=== PATIENT | male | born 1975 | race Caucasian/White ===

== ENCOUNTER → 2016-06-26 | Outpatient (CLI) | payer BC ==
[2016-02-16 11:47] VITALS: BP 108/62
--- NOTE | 2016-06-27 07:30 | RAD ---
HISTORY: Right hand pain, nontraumatic Study: Right hand three view Comparison: None Findings: The patient is status post arthrodesis of multiple carpal bones with a a round plate and multiple sc rews. 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 Radiocarpal degenerative joint disease is present with a subchondral cyst at the radius. The remainder of the bones and joints of the hand are intact and normally aligned. No erosive arthritis or soft tissue abnormality is identified. IMPRESSION: Postsurgical changes as above Degenerative joint disease radiocarpal joints Reported By:
--- NOTE | 2016-06-27 07:30 | RAD ---
HISTORY: Right wrist pain, nontraumatic Study: Right wrist three view Comparison: None Findings: The patient appears to be status post arthrodesis of multiple carpal bones with a round plate and mu ltiple screws. 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 Radiocarpal degenerative join t disease is present with a radial subchondral cyst present. The carpometacarpal joints are normal. IMPRESSION: Postsurgical changes as described Radiocarpal degenerative joint disease with subchondral cyst Reported By:
== END | disposition home or self-care (01) ==
LOC: RAD 19:14
PROVIDERS: ATTEND Internal Medicine
DX: M79.641 Pain in right hand (principal); M19.041 Primary osteoarthritis, right hand; M19.031 Primary osteoarthritis, right wrist; M25.831 Other specified joint disorders, right wrist
CPT/HCPCS: 73100; 73130

== ENCOUNTER 2016-09-22 20:12 | Emergency (ER) | payer BC ==
[2016-09-22 20:23] VITALS: BP 154/93; BMI 28.7
[2016-09-22 21:09] LABS: BILIRUBIN,URINE NEGATIVE (NEGATIVE); BLOOD/HEMOGLOBIN,URINE NEGATIVE (NEGATIVE); GLUCOSE, URINE NEGATIVE (NEGATIVE); KETONES,URINE NEGATIVE (NEGATIVE); LEUKOCYTE ESTERASE ,URINE NEGATIVE (NEGATIVE); NITRITES,URINE NEGATIVE (NEGATIVE); PH,URINE 6.5 (5.0 - 8.0); PROTEIN,URINE NEGATIVE (NEGATIVE); UROBILINOGEN,URINE NORMAL (NORMAL)
--- NOTE | 2016-09-22 21:12 | DR.GENAD ---
HPI - PCP Primary Care Physician: DR. GUTHRIE - Complaint/Symptoms Chief Complaint Doctors Comments: Patient is complaining of left CVA and side pain for the past seven days getting worst today. States he went to see Dr. Guthrie with the pain and they did an x-ray and set him up for a MRI with contrast next Sunday but the pain has gotten worst and he cannot wait until next week to find out what is going on. states the pain is worst when he cough or sneeze. states he had pneumonia Feb 2016 and he took all of his antibiotics. He denies SOB or wheezing or any recent trauma. He denies tobacco or alcohol usage. States his bowels has been regular and he has not seen any sami or hematuria. States chest pain worst when he cough. Chief Complaint:: LEFT SIDE PAIN UNDER RIB CAGE INTO LOWER BACK. STARTED HURTING A WEEK AGO. Self Treatment fo Chief Complaint: SEEN DR. GUTHRIE X-RAY DONE ON SUNDAY AT DR. GUTHRIE'S OFFICE PT TO FOLLOW UP WITH MRI - Nurses notes reviewed Nurses Notes Review: Yes - Source History Provided: Patient - Mode of Arrival Mode of Arrival: Ambulatory - Timing Onset of Chief Complaint: 09/15/16 Came on: Gradually - Duration Duration: Constant How lon Duration: Days - Location Location: left CVA pain - Severity Severity: Moderate, Severe - Modifying Factors Worsens:: movement, coughing Improves:: nothing PMH - PMH Past Medical History: Yes Past Medical History: Arthritis, Gout, Hypertension Past Surgical History: Yes Surgical History: Ortho Surgery, Tonsillectomy - Family History History of Family Medical Conditions: (UNKNOWN) Family Medical History: Coronary Artery Disease, Hypertension - Social History Does patient currently use any type of tobacco product: Yes Have you used tobacco products in the last 12 months: Yes Type of Tobacco Use: Smokeless How many years tobacco product used: 22 Does any household member use tobacco: No Alcohol Use: None Do you use any recreational Drugs:: No Lives With: Spouse Lives Where: Home - infectious screening In the last 2 months have you had wt loss of >10#?: NO Have you had fever, night sweats or hemotysis?: No Have you traveled outside the country in the last 6 months?: No Isolation: Standard ROS - Review of Systems Constitutional: No Symptoms Reported. negative: See HPI, Chills, Diaphoresis, Fever, Malaise, Weakness, Irritable, Fatigue, Loss of Appetite, Other Eyes: No Symptoms Reported ENTM: No Symptoms Reported. negative: See HPI, Ear Pain, Ear Discharge, Pulling on Ears, Hearing Loss, Nose Pain, Nose Discharge, Epistaxis, Nose Congestion, Mouth Pain, Mouth Swelling, Loose Teeth, Drooling, Throat Pain, Throat Swelling, Ear Foreign Body Respiratoy: Non-Productive Cough. negative: No Symptoms Reported, See HPI, Productive Cough, Moist Cough, Dry Cough, Hacking Cough, Barking Cough, Brassy Cough, Orthopnea, Short of Breath, Stridor, Wheezing, Hemoptysis, Other Cardiovascular: No Symptoms Reported, Chest Pain. negative: See HPI, Edema, Palpitations, Syncope, Cyanosis, Skin Mottling, Other Gastrointestinal/Abdominal: No Symptoms Reported, Abdominal Pain. negative: See HPI, Constipation, Diarrhea, Nausea, Vomiting, Food Intolerance, Other Genitourinary: No Symptoms Reported. negative: See HPI, Discharge, Dysuria, Frequency, Hematuria, Pain, Bleeding, Other Neurological: No Symptoms Reported Musculoskeletal: No Symptoms Reported, Left, Chest wall Integumentary: No Symptoms Reported. negative: See HPI, Change in Color, Change in Hair/Nails, Dryness, Lesions, Lumps, Rash, Itching, Wound, Bruises, Juandice, Other Hematologic/Lymphatic: No Symptoms Reported. negative: See HPI, Anemia, Blood Clots, Easy Bleeding, Easy Bruising, Swollen Glands, Lymphadenopathy, Other Endocrine: No Symptoms Reported. negative: See HPI, Excessive Sweating, Flushing, Intolerance to Cold, Intolerance to Heat, Increased Hunger, Increased Thirst, Increased Urine, Unexplained Weight Gain, Unexplained Weight Loss, Failure to Thrive, Decreased Appetite, Other Psychiatric: No Symptoms Reported. negative: See HPI, Anxiety, Depression, Hallucinations, Excessive crying, Suicidal, Other PE - Vital Signs Vitals: Temperature 98.2 F Pulse Rate 74 Respiratory Rate 16 Blood Pressure [Right Arm] 108/62 Blood Pressure 154/93 O2 Sat by Pulse Oximetry 97 - General Limitations: No Limitations. negative: Language Barrier, Altered Mental Status , Physical Limitation, Other General Appearance: Alert, In Distress (moderate) - Head Head Exam: Normal Inspection, Atraumatic, Normocephalic - Eyes Eye exam: Normal Appearance, PERRL, EOMI. negative: Scleral Icterus, Conjunctival Injection, Nystagmus, Miosis, Mydrasis, Periorbital Swelling, Periorbital Tenderness, Other - ENT ENT Exam: Normal Exam, Normal Oropharynx, Normal External Ear Exam, Mucous Membranes Moist, TM's Normal Bilaterally External Ear Exam: Normal External Inspection TM/Canal Exam: Bilateral Normal Nose Exam: Normal Nose Exam Mouth Exam: Normal Inspection Throat Exam: Normal Inspection. negative: Tonsillar Erythema, Tonsillomegaly, Tonsillar Exudate, R Peritonsillar Mass, L Peritonsillar Mass, Muffled Voice, Other - Neck Neck Exam: Normal Inspection, Full ROM, Trachea Midline. negative: Tenderness, Meningismus, Lymphadenopathy, Thyromegaly, Other - Chest Chest Inspection: Normal Inspection, Symmetric Chest Wall Rise - Respiratory Respiratory Exam: Normal Lung Sounds Bilat Respiratory Exam: Bilateral Clear to Auscultation - Cardiovascular Cardiovascular Exam: Regular Rate, Normal Rhythm, Normal Heart Sounds. negative : Bradycardia, Tachycardia, Irregular Rhythm, Systolic Murmur, Diastolic Murmur , Rubs, Gallop, Clicks, JVD, +S1, +S2, +S3, +S4, Other - Abdominal Exam Abdominal Exam: Normal Inspection, Normal Bowel Sounds, Soft, Tenderness (LUQ tenderness with guarding), Guarding, Dimnished Bowel Sounds Abdominal Tenderness: LUQ, Moderate - Extremities Extremities Exam: Normal Inspection, Full ROM, Normal Capillary Refill. negative: Tenderness, Edema, Joint Swelling, Calf Tenderness, Other - Back Back Exam: Normal Inspection, Full ROM. negative: Tenderness, (R) CVA Tenderness, (L) CVA Tenderness, Muscle Spasm, Paraspinal Tenderness, Vertebral Tenderness, Rashes, (R) Sciatic Notch Tenderness, (L) Sciatic Notch Tendern, (R ) Straight Leg Raise, (L) Straight Leg Raise, Other - Neurologic Neurological Exam: Alert, Oriented X3, CN II-XII Intact, Normal Gait, Reflexes Normal - Psychiatric Psychiatric Exam: Normal Affect, Normal Mood. negative: Depressed, Agitated, Anxious, Flat Affect, Manic, Homicidal Ideation, Suicidal Ideation, Other - Skin Skin Exam: Warm, Dry, Intact, Normal Color. negative: Rash, Cyanosis, Diaphoresis, Erythema, Pallor, Mottled, Other ROR - Labs Reviewed Laboratory Results Reviewed?: Yes (all labs and x-ray results reviewed and discussed with patient) Result Diagrams: 09/22/16 21:23 09/22/16 21:23 Laboratory: WBC 7.4 X10^3/uL (3.6-10.0) 09/22/16 21: RBC 5.22 X10^6/uL (4.7-6.0) 09/22/16 21: Hgb 15.8 g/dL (13.5-18.0) 09/22/16 21: Hct 45.7 % (42.0-54.0) 09/22/16 21: MCV 87.6 fL (80.0-100.0) 09/22/16 21: MCH 30.3 pg (27.0-34.0) 09/22/16 21: MCHC 34.6 g/dL (33.0-35.0) 09/22/16 21: RDW 13.9 % (11.6-16.5) 09/22/16 21: Plt Count 167 X10^3/uL (150.0-450.0) 09/22/16 21: MPV 8.2 fL (7.4-11.0) 09/22/16 21: Neut % 58.5 % (42.0-75.0) 09/22/16 21: Lymph % 32.0 % (21.0-51.0) 09/22/16 21: [place] % 5.8 % (0.0-13.0) 09/22/16 21: Eos % 2.6 % (0.9-2.9) 09/22/16 21: Baso % 1.1 % (0.2-1.0) H 09/22/16 21: Neut # 4.3 x10^3/uL (2.2-4.8) 09/22/16 21: Lymph # 2.4 X10^3/uL (1.3-2.9) 09/22/16 21: [place] # 0.4 x10^3/uL (0.3-0.8) 09/22/16 21: Eos # 0.2 x10^3/uL (0.0-0.2) 09/22/16 21: Baso # 0.1 X10^3/uL (0.0-0.1) 09/22/16 21:23 Absolute Nucleated RBC 0.0 /100WBC 09/22/16 21:23 D-Dimer < 100 ng/mL (0-400) 09/22/16 21:26 Sodium 143 mmol/L (136-145) 09/22/16 21:23 Corrected Sodium TNP 09/22/16 21:23 Potassium 3.8 mmol/L (3.5-5.1) 09/22/16 21:23 Chloride 106 mmol/L (98-107) 09/22/16 21:23 Carbon Dioxide 29.8 mmol/L (21-32) 09/22/16 21:23 BUN 10 mg/dL (7-18) 09/22/16 21:23 Creatinine 1.28 mg/dL (0.70-1.30) 09/22/16 21:23 Est GFR (MDRD) Af Amer > 60 (>60) 09/22/16 21:23 Est GFR (MDRD) Non-Af > 60 (>60) 09/22/16 21:23 Glucose 96 mg/dL (65-99) 09/22/16 21:23 Calcium 8.9 mg/dL (8.5-10.1) 09/22/16 21:23 Corrected Calcium TNP 09/22/16 21:23 Total Bilirubin 0.60 mg/dL (0.2-1.0) 09/22/16 21:23 AST 20 Units/L (15-37) 09/22/16 21:23 ALT 29 Units/L (12-78) 09/22/16 21:23 Alkaline Phosphatase 63 Units/L (46-116) 09/22/16 21:23 Total Protein 7.6 g/dL (6.4-8.2) 09/22/16 21:23 Albumin 4.1 g/dL (3.4-5.0) 09/22/16 21:23 Globulin 3.5 g/dL (2.5-4.5) 09/22/16 21:23 Albumin/Globulin Ratio 1.2 Ratio (1.1-2.1) 09/22/16 21:23 Amylase 62 Units/L (25-115) 09/22/16 21:23 Lipase 145 Units/L (73-393) 09/22/16 21:23 Specimen Type Clean catch urine 09/22/16 20:51 Urine Color Yellow (YELLOW) 09/22/16 20:51 Urine Appearance Clear (CLEAR) 09/22/16 20:51 Urine pH 6.5 (5.0 - 8.0) 09/22/16 20:51 Ur Specific [place] 1.010 (1.000-1.030) 09/22/16 20:51 Urine Protein Negative (NEGATIVE) 09/22/16 20:51 Urine Glucose (UA) Negative (NEGATIVE) 09/22/16 20:51 Urine Ketones Negative (NEGATIVE) 09/22/16 20:51 Urine Occult Blood Negative (NEGATIVE) 09/22/16 20:51 Urine Nitrite Negative (NEGATIVE) 09/22/16 20:51 Urine Bilirubin Negative (NEGATIVE) 09/22/16 20:51 Urine Urobilinogen Normal (NORMAL) 09/22/16 20:51 Ur Leukocyte Esterase Negative (NEGATIVE) 09/22/16 20:51 Urine RBC 0-3 /HPF (NEGATIVE) 09/22/16 20:51 Urine WBC 0-3 /HPF (NEGATIVE) 09/22/16 20:51 Ur Squamous Epith Cells Rare /HPF (NEGATIVE) 09/22/16 20:51 Urine Bacteria Negative /HPF (NEGATIVE) 09/22/16 20:51 Ur Culture Indicated? No/not indicated 09/22/16 20:51 Urine Opiates Screen Negative (NEG=<300) 09/22/16 20:51 Urine Methadone Screen Negative (NEG=<300) 09/22/16 20:51 Ur Barbiturates Screen Negative (NEG=<200) 09/22/16 20:51 Ur Phencyclidine Scrn Negative (NEG=<25) 09/22/16 20:51 Ur Amphetamines Screen Negative (NEG=<1000) 09/22/16 20:51 U Benzodiazepines Scrn Negative (NEG=<200) 09/22/16 20:51 Urine Cocaine Screen Negative (NEG=<300) 09/22/16 20:51 U Marijuana (THC) Screen Negative (NEG=<50) 09/22/16 20:51 H. pylori IgG Antibody Negative (NEGATIVE) 09/22/16 21:23 - XRAY XRAY Interpreted by: Radiologist (CT abdomen:Multiple bilateral nonobstructing renal pelvic stones. No other acute intra-abdominal or intrapelvic process.) XRAY Findings: CXR: No acute cardiopulmonary abnormality - Diagnosis Discharge Problem: Bilateral kidney stones, Left-sided chest wall pain, Costochondritis, acute - Discharge Plan Disposition: HOME, SELF-CARE Condition: Stable Prescriptions: Acetaminophen/Codeine Tab [TYLENOL w/CODEINE #3 (300 MG/30 MG) *] 1 tab PO Q4- 6H PRN #24 tab PRN Reason: Pain Naproxen [NAPROSYN 500 MG *] 500 mg PO BID PRN #30 tab PRN Reason: Pain/Inflammation - Follow ups/Referrals Follow ups/Referrals: Josue Guthrie [Primary Care Provider] - 3 days - Instructions Instructions: Kidney Stones, [id number], Musculoskeletal Pain
[2016-09-22] MEDS ORDERED: TORADOL 30 MG VIAL IVP STA (21:16)
[2016-09-22] MEDS ORDERED: NS 1000 ML 1,000 ML IV ONE (21:17)
[2016-09-22] MEDS ORDERED: NS 1000 ML 1,000 ML ONE (21:27)
[2016-09-22] MEDS ORDERED: TORADOL 30 MG VIAL ONE (21:27)
[2016-09-22 21:29] LABS: BASOPHILS # (AUTO) 0.1 X10^3/uL (0.0-0.1); BASOPHILS % (AUTO) 1.1 % (0.2-1.0); EOSINOPHILS # (AUTO) 0.2 x10^3/uL (0.0-0.2); EOSINOPHILS % (AUTO) 2.6 % (0.9-2.9); HEMATOCRIT 45.7 % (42.0-54.0); HEMOGLOBIN 15.8 g/dL (13.5-18.0); LYMPHOCYTES # (AUTO) 2.4 X10^3/uL (1.3-2.9); MEAN CORPUSCULAR HEMOGLOBIN 30.3 pg (27.0-34.0); MEAN CORPUSCULAR HGB CONC 34.6 g/dL (33.0-35.0); MEAN CORPUSCULAR VOLUME 87.6 fL (80.0-100.0); MEAN PLATELET VOLUME 8.2 fL (7.4-11.0); MONOCYTES # (AUTO) 0.4 x10^3/uL (0.3-0.8); MONOCYTES % (AUTO) 5.8 % (0.0-13.0); NEUTROPHILS # (AUTO) 4.3 x10^3/uL (2.2-4.8); NEUTROPHILS % (AUTO) 58.5 % (42.0-75.0); PLATELET COUNT 167 X10^3/uL (150.0-450.0); RED BLOOD COUNT 5.22 X10^6/uL (4.7-6.0); RED CELL DISTRIBUTION WIDTH 13.9 % (11.6-16.5); WHITE BLOOD COUNT 7.4 X10^3/uL (3.6-10.0)
[2016-09-22 21:30] LABS: APPEARANCE,URINE CLEAR (CLEAR); BACTERIA,URINE NEGATIVE /HPF (NEGATIVE); COLOR,URINE YELLOW (YELLOW); RBC,URINE 0-3 /HPF (NEGATIVE); SQUAMOUS EPITHELIAL CELL,UR RARE /HPF (NEGATIVE)
[2016-09-22 21:41] LABS: ALANINE AMINOTRANSFERASE 29 Units/L (12-78); ALBUMIN 4.1 g/dL (3.4-5.0); ALKALINE PHOSPHATASE 63 Units/L (46-116); AMYLASE 62 Units/L (25-115); ASPARTATE AMINO TRANSFERASE 20 Units/L (15-37); BLOOD UREA NITROGEN 10 mg/dL (7-18); CALCIUM 8.9 mg/dL (8.5-10.1); CARBON DIOXIDE 29.8 mmol/L (21-32); CHLORIDE 106 mmol/L (98-107); CREATININE 1.28 mg/dL (0.70-1.30); GLUCOSE 96 mg/dL (65-99); LIPASE 145 Units/L (73-393); SODIUM 143 mmol/L (136-145); TOTAL PROTEIN 7.6 g/dL (6.4-8.2); eGFR BLACK RACES > 60 (>60); eGFR NON BLACK RACES > 60 (>60)
--- NOTE | 2016-09-22 21:57 | CT ---
CT ABDOMEN AND PELVIS WITHOUT CONTRAST CLINICAL HISTORY: 40-year-old male with left flank pain. COMPARISON: None. TECHNIQUE: Multiple contiguous computed tomographic axial images of the abdomen and pelvis were obta ined without the use of oral or intravenous contrast. Images were reformatted in the coronal and sag ittal planes. FINDINGS: Study is limited secondary to patient motion. The lung bases demonstrate no evidence of focal air-space opacification, pleural effusion, pneumotho rax, or suspicious pulmonary nodules. The imaged inferior mediastinum and heart are normal in appea kellee without evidence of pericardial effusion. The liver, gallbladder, pancreas, and spleen are within normal limits for noncontrast imaging. The generalize unremarkable for study without contrast. Bilateral nonobstructing renal pelvic stones measuring up to 4 mm. No perinephric or periureteric fluid. There is no evidence of hydroureteronep hrosis and the ureters run in an unobstructed course to a moderately distended urinary bladder. The prostate, seminal vesicles, and external genitalia are within normal limits. The appendix is normal in appearance. The bowel is without obstruction or inflammation and there is no free fluid or free air within the peritoneal cavity. There are no pathologically enlarged lymph nodes in the abdomen or pelvis. The arteriovascular structures are within normal limits for a study without contrast. Soft tissues are normal. The osseous structures are intact without fracture or malalignment. IMPRESSION: 1. Multiple bilateral nonobstructing renal pelvic stones measuring up to 4 mm. 2. No other acute intra-abdominal or intrapelvic process. Reported By:
[2016-09-22] MEDS ORDERED: ROCEPHIN VIAL 1 GM 1 GM in NS 50 ML IV + SPIKE MINIBAG* 50 ML IV ONE (22:49)
[2016-09-22] MEDS ORDERED: NORFLEX INJ IVP ONE (22:51)
--- NOTE | 2016-09-22 23:24 | RAD ---
Chest, two views Indication: Right-sided chest pain. Comparison: 02/16/2016 Findings: The cardiac silhouette is unremarkable. The lungs are essentially clear without focal infi ltrates, pleural effusion, or pneumothorax. The bony thorax is unremarkable. Impression: No acute cardiopulmonary abnormality. Reported By:
[2016-09-22] MEDS ORDERED: ROCEPHIN 1 GM IV ONE (23:30)
[2016-09-22] MEDS ORDERED: [UNRECOGNIZED DRUG - OTHER] IV ONE (23:30)
[2016-09-22] MEDS ORDERED: NORFLEX INJ ONE (23:30)
[2016-09-22] MEDS ORDERED: ROCEPHIN VIAL 1 GM ONE (23:31)
[2016-09-22] MEDS ORDERED: NS 50 ML IV 50 ML IV ONE (23:31)
== END 2016-09-23 00:50 | disposition home or self-care (01) ==
LOC: ER 20:27
DX: N20.0 Calculus of kidney (principal); R07.89 Other chest pain; M94.0 Chondrocostal junction syndrome [Tietze]
CPT/HCPCS: 36415; 71020; 74176; 80053; 80307; 81001; 82150; 83690; 85025; 85378; 86677; 96365; 96374; 96375; 99283; A4216; A4222; G0434; J0696; J1885; J2360

== ENCOUNTER 2017-01-06 11:22 | Emergency (ER) | payer BC ==
[2017-01-06 11:23] VITALS: BP 154/93
[2017-01-06 11:27] VITALS: BMI 29.9
[2017-01-06] MEDS ORDERED: TORADOL 30 MG VIAL IVP ONE (11:52)
--- NOTE | 2017-01-06 11:53 | DR.GENAD ---
HPI - PCP Primary Care Physician: Benji - Complaint/Symptoms Chief Complaint Doctors Comments: Patient with a history nephrolithiasis, had lithotrypsy a few months ago. Pain is similar to previous kidney stones. Chief Complaint:: "Yesterday I started hurting on my right side. I have had kidney stones in the past and it feels just like it." - Source History Provided: Patient - Mode of Arrival Mode of Arrival: Ambulatory - Timing Onset of Chief Complaint: 01/05/17 PMH - PMH Past Medical History: Yes Past Medical History: Arthritis, Gout, Hypertension Past Surgical History: Yes Surgical History: Ortho Surgery, Tonsillectomy Past Surgical History Comment: x2 wrist - Family History History of Family Medical Conditions: Yes Family Medical History: Coronary Artery Disease, Hypertension - Social History Does patient currently use any type of tobacco product: Yes Have you used tobacco products in the last 12 months: Yes Type of Tobacco Use: Smokeless Does any household member use tobacco: No Alcohol Use: None Do you use any recreational Drugs:: No Lives With: Family Lives Where: Home - infectious screening In the last 2 months have you had wt loss of >10#?: NO Have you had fever, night sweats or hemotysis?: No Have you traveled outside the country in the last 6 months?: No Isolation: Standard ROS - Review of Systems Eyes: No Symptoms Reported ENTM: No Symptoms Reported Respiratoy: No Symptoms Reported Cardiovascular: No Symptoms Reported Gastrointestinal/Abdominal: No Symptoms Reported Genitourinary: No Symptoms Reported Neurological: No Symptoms Reported Musculoskeletal: Other (right flank pain) Integumentary: No Symptoms Reported Hematologic/Lymphatic: No Symptoms Reported Endocrine: No Symptoms Reported Psychiatric: No Symptoms Reported All Other Systems: Reviewed and Negative PE - Vital Signs Vitals: Temperature 98.4 F Pulse Rate 80 Respiratory Rate 17 Blood Pressure [Right Arm] 108/62 Blood Pressure 154/93 O2 Sat by Pulse Oximetry 97 - General General Appearance: Alert, In No Apparent Distress - Head Head Exam: Normal Inspection, Atraumatic - Eyes Eye exam: Normal Appearance, PERRL, EOMI - ENT ENT Exam: Normal Exam External Ear Exam: Normal External Inspection TM/Canal Exam: Bilateral Normal Nose Exam: Normal Nose Exam Mouth Exam: Normal Inspection Throat Exam: Normal Inspection, Tonsillar Erythema - Neck Neck Exam: Normal Inspection, Full ROM - Chest Chest Inspection: Normal Inspection - Respiratory Respiratory Exam: Normal Lung Sounds Bilat Respiratory Exam: Bilateral Clear to Auscultation - Cardiovascular Cardiovascular Exam: Regular Rate - Abdominal Exam Abdominal Exam: Normal Inspection, Normal Bowel Sounds Abdominal Tenderness: negative: RUQ, RLQ, LUQ, LLQ, Epigastrium, Suprapubic, Diffuse, Mild, Moderate, Severe, Other - Extremities Extremities Exam: Normal Inspection, Full ROM - Back Back Exam: Normal Inspection, (R) CVA Tenderness - Neurologic Neurological Exam: Alert, Oriented X3, CN II-XII Intact - Psychiatric Psychiatric Exam: Normal Affect - Skin Skin Exam: Warm, Dry, Intact Course - Reevaluation 1st: Unchanged ROR - Labs Reviewed Laboratory: Specimen Type Clean catch urine 01/06/17 12:18 Urine Color Yellow (YELLOW) 01/06/17 12:18 Urine Appearance Clear (CLEAR) 01/06/17 12:18 Urine pH 5.0 (5.0 - 8.0) 01/06/17 12:18 Ur Specific [place] 1.015 (1.000-1.030) 01/06/17 12:18 Urine Protein Negative (NEGATIVE) 01/06/17 12:18 Urine Glucose (UA) Negative (NEGATIVE) 01/06/17 12:18 Urine Ketones Negative (NEGATIVE) 01/06/17 12:18 Urine Occult Blood 1+ (NEGATIVE) 01/06/17 12:18 Urine Nitrite Negative (NEGATIVE) 01/06/17 12:18 Urine Bilirubin Negative (NEGATIVE) 01/06/17 12:18 Urine Urobilinogen Normal (NORMAL) 01/06/17 12:18 Ur Leukocyte Esterase Negative (NEGATIVE) 01/06/17 12:18 Urine RBC 0-2 /HPF (NEGATIVE) 01/06/17 12:18 Urine WBC None seen /HPF (NEGATIVE) 01/06/17 12:18 Ur Squamous Epith Cells Negative /HPF (NEGATIVE) 01/06/17 12:18 Amorphous Sediment Trace /HPF (NEGATIVE) 01/06/17 12:18 Urine Bacteria Trace /HPF (NEGATIVE) 01/06/17 12:18 Ur Culture Indicated? No/not indicated 01/06/17 12:18 - XRAY XRAY Interpreted by: Radiologist (CT ABD/Pelv w/o: There are several tiny nonobstructing bilateral renal calculi measuring less than 3mm each. There are on ureteral calculi or evidence of obstructive uropathy. A recently passed stone is not excluded..l.There is an uncomplicated wide neck fat containing umbilical hernia which measures up to 2.3cm in transverse diameter with a neck measuring 18mm in transverse diameter.) - Diagnosis Discharge Problem: Nephrolithiasis - Discharge Plan Condition: Stable - Follow ups/Referrals Follow ups/Referrals: Josue Leblanc [Primary Care Provider] - 3 days - Instructions
[2017-01-06] MEDS ORDERED: TORADOL 30 MG VIAL ONE (11:54)
[2017-01-06] MEDS ORDERED: NS 1000 ML 1,000 ML ONE (11:54)
[2017-01-06] MEDS ORDERED: NS 1000 ML 1,000 ML IV SCH (12:00)
[2017-01-06 12:26] LABS: BILIRUBIN,URINE NEGATIVE (NEGATIVE); BLOOD/HEMOGLOBIN,URINE 1+ (NEGATIVE); GLUCOSE, URINE NEGATIVE (NEGATIVE); KETONES,URINE NEGATIVE (NEGATIVE); LEUKOCYTE ESTERASE ,URINE NEGATIVE (NEGATIVE); NITRITES,URINE NEGATIVE (NEGATIVE); PROTEIN,URINE NEGATIVE (NEGATIVE); UROBILINOGEN,URINE NORMAL (NORMAL)
[2017-01-06 12:33] LABS: APPEARANCE,URINE CLEAR (CLEAR); COLOR,URINE YELLOW (YELLOW)
[2017-01-06 12:34] LABS: AMORPHOUS SEDIMENT,UR TRACE /HPF (NEGATIVE); BACTERIA,URINE TRACE /HPF (NEGATIVE); RBC,URINE 0-2 /HPF (NEGATIVE); SQUAMOUS EPITHELIAL CELL,UR NEGATIVE /HPF (NEGATIVE)
--- NOTE | 2017-01-06 14:08 | CT ---
HISTORY: Right flank pain. History of kidney stones. Study: CT abdomen and pelvis without contrast. Comparison: 09/22/2016. Technique: Multiple axial images of the abdomen and pelvis were obtained from the lung bases to the p ubic symphysis without the administration of IV contrast. Findings: Included portions of the lung bases are clear. The liver, gallbladder, pancreas, spleen and adrenal glands are unremarkable noncontrast CT appearance. There are few tiny nonobstructing bilater al renal calculi which measure less than a 3 mm each. There are no stones along the course of either ureter or within the lumen of the partially distended urinary bladder. Recently passed stone is not e xcluded. The appendix is normal. The colon is grossly unremarkable without evidence of diverticulosis . There is no small bowel dilatation. There is no significant mesenteric stranding or lymphadenopathy . There is no intraperitoneal free air or free fluid. There is an uncomplicated wide neck fat contain ing umbilical hernia which measures up to 2.3 cm in transverse diameter with a neck measuring 18 mm i n transverse diameter. The abdominal aorta is nonaneurysmal. The bony structures are grossly intact. IMPRESSION: There are several tiny nonobstructing bilateral renal calculi measuring less than 3 mm each. There ar e no ureteral calculi or evidence of obstructive uropathy. A recently passed stone is not excluded. Reported By:
== END 2017-01-06 14:28 | disposition home or self-care (01) ==
LOC: ER 11:22
DX: N20.0 Calculus of kidney (principal); R10.84 Generalized abdominal pain
CPT/HCPCS: 74176; 81001; 96365; 96367; 96374; 99283; A4222; J1885

== ENCOUNTER 2019-07-27 21:23 | Inpatient (IN) ==
[2019-07-27 21:33] VITALS: BMI 31.2
--- NOTE | 2019-07-27 21:39 | DR.SOBA ---
HPI Time Seen Time Seen by Provider: 07/27/19 21:33 Primary Care Physician Primary Care Physician: CARL ARTEAGA HPI Comment HPI Comment: PATIENT IS 43YR OLD MALE IN ER WITH COUGH, SOB, FEVER AND GENERALIZED WEAKNESS TIMES 3 DAYS. SEEN IN THIS ER 2 DAYS AGO AND WAS GIVEN INHALER FOR THE BREATHING . THIS HAVE NOT HELP. STILL RUNNING FEVER. PATIENT IS DIAPHORETIC AND HAVING RESPIRATORY DISTRESS IN ER. DENIES RECENT TRAVEL OR CONTACT WITH COVID 19 POSITIVE PATIENT. HIS WAS IN CONTACT WITH PATIENT WITH COVID 19. Complaints Chief Complaint Doctors Comments: FEVER, COUGH AND GENERALIZED WEAKNESS TIMES 3 DAYS. Chief Complaint:: DRY COUGH, FEVER, WEAKNESS X 3 DAYS. PREVIOUS VISIT TO THIS ER DX WITH ASTHMA AND RECEIVED INHALER, PATIENT STATES NO RELIEF. TEMP IN TRIAGE IS 101. PATIENT HAS NO KNOWN EXPOSURE TO COVID, BUT HAS. COVID-19 Coronavirus risk:travel/contact w/high risk person: No Has patient experienced Coronavirus symptoms: No Coronavirus symptoms experienced: Fever Reviewed Nurses Notes Reviewed: Yes Source History Provided: Patient Mode of Arrival Mode of Arrival: Ambulatory Timing Onset of Chief Complaint: 07/25/19 Duration Duration: Days Context Onset:: With Light Exertion PE Risk Factors:: None History of:: None Currently on:: Inhaled Bronchodilators Prehospital Care:: Inhaled B2 Modifying Factors Worsens:: Exertion Improves:: Rest Associated Signs and Symptoms Associated Signs and Symptoms: Fever, Cough and Chest Pain If Chest Pain Quality: Pleuritic (TIGHTNESS.) Location: Substernal If Cough Cough: Nonproductive PMH PMH Past Medical History: Yes Past Medical History: Gout and Hypertension Past Surgical History: Yes Surgical History: Ortho Surgery and Tonsillectomy Past Surgical History Comment: HERNIA REPAIR Family History History of Family Medical Conditions: No Family Medical History: Coronary Artery Disease and Hypertension Social History Alcohol Use: None Do you use any recreational Drugs:: No Lives With: Family Lives Where: Home Infectious screening In the last 2 months have you had wt loss of >10#?: NO Have you had fever, night sweats or hemotysis?: No Have you traveled outside the country in the last 6 months?: No Isolation: Standard ROS Review of Systems Constitutional: Fever, Weakness and Fatigue Eyes: No Symptoms Reported; negative Blurred Vision and Diplopia ENTM: Nose Congestion; negative Ear Pain, Nose Discharge and Throat Pain Respiratoy: See HPI, Non-Productive Cough, Short of Breath and Wheezing Cardiovascular: See HPI and Palpitations; negative Chest Pain and Edema Gastrointestinal/Abdominal: No Symptoms Reported and See HPI; negative Abdominal Pain, Nausea and Vomiting Genitourinary: No Symptoms Reported and See HPI; negative Dysuria, Frequency and Hematuria Neurological: See HPI and Weakness; negative Headache Musculoskeletal: See HPI and Muscle Pain; negative Back Pain Integumentary: No Symptoms Reported and See HPI; negative Change in Color, Rash and Juandice Hematologic/Lymphatic: No Symptoms Reported and See HPI; negative Easy Bruising and Swollen Glands Endocrine: No Symptoms Reported and See HPI; negative Increased Thirst and Increased Urine Psychiatric: No Symptoms Reported and See HPI All Other Systems: Reviewed and Negative PE Vital Signs Vitals: Temperature 98.2 F Pulse Rate 84 Respiratory Rate 20 Blood Pressure [Right Arm] 131/84 Blood Pressure 130/82 O2 Sat by Pulse Oximetry 96 General Limitations: No Limitations General Appearance: Alert and In Distress Head Head Exam: Normal Inspection, Atraumatic and Normocephalic Eyes Eye exam: Normal Appearance, PERRL and EOMI; negative Scleral Icterus and Conjunctival Injection ENT ENT Exam: Normal Exam, Normal Oropharynx, Normal External Ear Exam and TM's Normal Bilaterally Neck Neck Exam: Normal Inspection and Trachea Midline; negative Tenderness and Lymphadenopathy Chest Chest Inspection: Normal Inspection and Symmetric Chest Wall Rise; negative Tenderness Respiratory Respiratory Exam: Normal Lung Sounds Bilat and Respiratory Distress; negative Accessory Muscle Use and Chest Wall Tenderness Respiratory Exam: Bilateral: Rhonchi Cardiovascular Cardiovascular Exam: Regular Rate, Normal Rhythm and Normal Heart Sounds; negative Systolic Murmur and Diastolic Murmur Abdominal Exam Abdominal Exam: Normal Inspection, Normal Bowel Sounds and Soft; negative Tenderness Extremities Extremities Exam: Normal Inspection and Normal Capillary Refill; negative Tenderness, Edema and Calf Tenderness Back Back Exam: Normal Inspection; negative (R) CVA Tenderness and (L) CVA Tenderness Neurologic Neurological Exam: Alert, Oriented X3 and CN II-XII Intact; negative Motor Sensory Deficit Psychiatric Psychiatric Exam: Normal Affect and Normal Mood Skin Skin Exam: Dry MDM Additional Information Obtained Additional Information Obtained From: Family (MOTHER PROVIDED SOME OF THE HISTORY.) Differential Diagnosis Differential Diagnosis: Bronchitis, CHF, Dysrhythmia, Hyponatremia, Pneumonia, Respiratory Insufficiency, URI and Other (UTI.) COURSE Treatment Treatment: SEE ORDERS. TYENOL 1GM IVPB. PAIN AND FEVER DECREASING. Consultation Consultation Comments: DISCUSSED PATIENT WITH DR. HERR. HE WILL ADMIT PATIENT. Education/Counseling Education/Counseling: Patient and Family Educated On: Diagnosis and Needs for Follow Up ROR Labs Reviewed Laboratory Results Reviewed?: Yes Result Diagrams: 07/29/19 04:58 07/29/19 04:58 Laboratory: WBC 5.6 X10^3/uL (3.6-10.0) 07/27/19 22:04 RBC 5.25 X10^6/uL (4.7-6.0) 07/27/19 22:04 Hgb 15.9 g/dL (13.5-18.0) 07/27/19 22:04 Hct 46.3 % (42.0-54.0) 07/27/19 22:04 MCV 88.3 fL (80.0-100.0) 07/27/19 22:04 MCH 30.2 pg (27.0-34.0) 07/27/19 22:04 MCHC 34.2 g/dL (33.0-35.0) 07/27/19 22:04 RDW 14.0 % (11.6-16.5) 07/27/19 22:04 Plt Count 121 X10^3/uL (150.0-450.0) L 07/27/19 22:04 MPV 8.6 fL (7.4-11.0) 07/27/19 22:04 Neut % (Auto) 85.7 % (42.0-75.0) H 07/27/19 22:04 Lymph % (Auto) 9.9 % (21.0-51.0) L 07/27/19 22:04 [place] % (Auto) 4.1 % (0.0-13.0) 07/27/19 22:04 Eos % (Auto) 0.1 % (0.9-2.9) L 07/27/19 22:04 Baso % (Auto) 0.2 % (0.2-1.0) 07/27/19 22:04 Neut # (Auto) 4.8 x10^3/uL (2.2-4.8) 07/27/19 22:04 Lymph # (Auto) 0.6 X10^3/uL (1.3-2.9) L 07/27/19 22:04 [place] # (Auto) 0.2 x10^3/uL (0.3-0.8) L 07/27/19 22:04 Eos # (Auto) 0.0 x10^3/uL (0.0-0.2) 07/27/19 22:04 Baso # (Auto) 0.0 X10^3/uL (0.0-0.1) 07/27/19 22:04 Absolute Nucleated RBC 0.1 /100WBC 07/27/19 22:04 Sample Site Rbra 07/27/19 23:53 ABG pH 7.520 (7.35-7.45) H 07/27/19 23:53 ABG pCO2 28.0 mmHg (35.0-45.0) L 07/27/19 23:53 ABG pO2 101.0 mmHg (80.0-100.0) H 07/27/19 23:53 ABG HCO3 22.9 mmol/L (22-26) 07/27/19 23:53 ABG O2 Saturation 98.0 % (90-100) 07/27/19 23:53 ABG Base Excess 1.0 mmol/L (-2.0-2.0) 07/27/19 23:53 [place]ug[place] Test Na 07/27/19 23:53 A-a Gradient 64.0 mmHg 07/27/19 23:53 FiO2 28.0 07/27/19 23:53 Blood Gas Comments Hu abg well-mtf 07/27/19 23:53 Sodium 135 mmol/L (136-145) L 07/27/19 22:04 Corrected Sodium TNP 07/27/19 22:04 Potassium 3.6 mmol/L (3.5-5.1) 07/27/19 22:04 Chloride 96 mmol/L (98-107) L 07/27/19 22:04 Carbon Dioxide 24.9 mmol/L (21-32) 07/27/19 22:04 BUN 13 mg/dL (7-18) 07/27/19 22:04 Creatinine 1.59 mg/dL (0.70-1.30) H 07/27/19 22:04 Est GFR (MDRD) Af Amer > 60 (>60) 07/27/19 22:04 Est GFR (MDRD) Non-Af 51 (>60) L 07/27/19 22:04 Glucose 100 mg/dL (65-99) H 07/27/19 22:04 Lactic Acid 2.5 mmol/L (0.4-2.0) H 07/27/19 22:04 Calcium 8.8 mg/dL (8.5-10.1) 07/27/19 22:04 Corrected Calcium TNP 07/27/19 22:04 Ferritin 934 ng/mL (26-388) H 07/27/19 22:04 Total Bilirubin 0.80 mg/dL (0.2-1.0) 07/27/19 22:04 AST 36 Units/L (15-37) 07/27/19 22:04 ALT 39 Units/L (12-78) 07/27/19 22:04 Alkaline Phosphatase 78 Units/L (46-116) 07/27/19 22:04 C-Reactive Protein 74.10 mg/L (0-3.0) H 07/27/19 22:04 Total Protein 8.0 g/dL (6.4-8.2) 07/27/19 22:04 Albumin 3.7 g/dL (3.4-5.0) 07/27/19 22:04 Globulin 4.3 g/dL (2.5-4.5) 07/27/19 22:04 Albumin/Globulin Ratio 0.9 Ratio (1.1-2.1) L 07/27/19 22:04 RSV Nasal Swab Negative (NEGATIVE) 07/27/19 22:45 Influenza Type A Ag Negative-presumptive (NEGATIVE) 07/27/19 22:16 Influenza Type B Ag Negative-presumptive (NEGATIVE) 07/27/19 22:16 S. pyogenes (TEM-PCR) Not detected (NOT DETECT) 07/27/19 22:16 Other Results Comments: FINDINGS Patchy left lung opacity is increased. There is no pneumothorax. Heart size is normal. Monitor leads obscure minimal detail IMPRESSION Worsening patchy pulmonary opacities. Multifocal pneumonia is possible. Villegas virus infection is possible. Clinical correlation recommended. Follow-up to resolution. XRAY XRAY Interpreted by: Radiologist (REPORT NOTED AND DISCUSSED WITH PATIENT.) and Self (PNEUMONIA) EKG Rate: 103 [place]: Normal Rhythm: ST Block: None Hypertrophy: None ST: Normal Opioid Opioid Risk Tool Age (Kali box if 16-45): Yes History of Preadolescent Sexual Abuse: No Total: 1 Total Score Risk Category: Low Risk Copyright: Jeff HAMPTON predicting aberrant behaviors Diagnosis Discharge Problem: Hypoxia Pneumonia Qualifiers: Pneumonia type: due to unspecified organism Laterality: bilateral Lung location: unspecified part of lung Qualified Code(s): J18.9 - Pneumonia, unspecified organism Dyspnea Qualifiers: Dyspnea type: shortness of breath Qualified Code(s): R06.02 - Shortness of breath Instructions Forms: Excuse From Work Precautions for COVID19 Patient Portal Social Distancing
[2019-07-27] MEDS ORDERED: OFIRMEV IV 1000 MG VIAL 1,000 MG/100 ML VIAL IV ONE ×2 (21:58→22:21)
[2019-07-27 22:38] LABS: BASOPHILS % (AUTO) 0.2 % (0.2-1.0); EOSINOPHILS % (AUTO) 0.1 % (0.9-2.9); HEMATOCRIT 46.3 % (42.0-54.0); HEMOGLOBIN 15.9 g/dL (13.5-18.0); LYMPHOCYTES # (AUTO) 0.6 X10^3/uL (1.3-2.9); LYMPHOCYTES % (AUTO) 9.9 % (21.0-51.0); MEAN CORPUSCULAR HEMOGLOBIN 30.2 pg (27.0-34.0); MEAN CORPUSCULAR HGB CONC 34.2 g/dL (33.0-35.0); MEAN CORPUSCULAR VOLUME 88.3 fL (80.0-100.0); MEAN PLATELET VOLUME 8.6 fL (7.4-11.0); MONOCYTES # (AUTO) 0.2 x10^3/uL (0.3-0.8); MONOCYTES % (AUTO) 4.1 % (0.0-13.0); NEUTROPHILS # (AUTO) 4.8 x10^3/uL (2.2-4.8); NEUTROPHILS % (AUTO) 85.7 % (42.0-75.0); PLATELET COUNT 121 X10^3/uL (150.0-450.0); RED BLOOD COUNT 5.25 X10^6/uL (4.7-6.0); WHITE BLOOD COUNT 5.6 X10^3/uL (3.6-10.0)
[2019-07-27 22:42] LABS: ALANINE AMINOTRANSFERASE 39 Units/L (12-78); ALBUMIN 3.7 g/dL (3.4-5.0); ALKALINE PHOSPHATASE 78 Units/L (46-116); ASPARTATE AMINO TRANSFERASE 36 Units/L (15-37); BLOOD UREA NITROGEN 13 mg/dL (7-18); CALCIUM 8.8 mg/dL (8.5-10.1); CARBON DIOXIDE 24.9 mmol/L (21-32); CHLORIDE 96 mmol/L (98-107); CREATININE 1.59 mg/dL (0.70-1.30); SODIUM 135 mmol/L (136-145); eGFR NON BLACK RACES 51 (>60)
[2019-07-27 23:04] LABS: RSV AG DETECTION NEGATIVE (NEGATIVE)
[2019-07-27 23:04] LABS: LACTIC ACID 2.5 mmol/L (0.4-2.0)
[2019-07-27] MEDS ORDERED: NS 1000 ML 1,000 ML IV SCH (23:45)
[2019-07-27] MEDS ORDERED: ROCEPHIN VIAL 1 GRAM 1 G in NS 100 ML IV + SPIKE MINIBAG* 100 ML IV ONE (23:57)
[2019-07-28] MEDS ORDERED: NS 100 ML IV + SPIKE MINIBAG* 100 ML IV ONE
[2019-07-28] MEDS ORDERED: ROCEPHIN VIAL 1 GRAM ONE
[2019-07-28] MEDS ORDERED: NS 1000 ML 1,000 ML ONE
[2019-07-28 00:01] LABS: ABG HCO3 22.9 mmol/L (22-26)
[2019-07-28] MEDS ORDERED: TUSSIONEX PENNKINETIC SUSP PO PRN (01:26)
[2019-07-28] MEDS ORDERED: NS 1/2 1000 ML IV 1,000 ML IV ONE ×2 (01:54→20:40)
[2019-07-28] MEDS: NS 1/2 1000 ML IV 1,000 ML IV SCH ×2 (02:29→21:00)
[2019-07-28 03:16] LABS: BILIRUBIN,URINE NEGATIVE (NEGATIVE); BLOOD/HEMOGLOBIN,URINE 2+ (NEGATIVE); GLUCOSE, URINE NEGATIVE (NEGATIVE); KETONES,URINE 4+ (NEGATIVE); LEUKOCYTE ESTERASE ,URINE 1+ (NEGATIVE); NITRITES,URINE POSITIVE (NEGATIVE); PROTEIN,URINE 2+ (NEGATIVE); UROBILINOGEN,URINE 1+ (NORMAL)
[2019-07-28 03:18] LABS: APPEARANCE,URINE CLOUDY (CLEAR); COLOR,URINE YELLOW (YELLOW)
[2019-07-28 03:24] LABS: BACTERIA,URINE TRACE /HPF (NEGATIVE); RBC,URINE 0-2 /HPF (0-3); SQUAMOUS EPITHELIAL CELL,UR NEGATIVE /HPF (NEGATIVE)
--- NOTE | 2019-07-28 03:55 | RAD ---
Chest AP portableIndication: Dyspnea and dry cough. FeverCOMPARISONJune 2019FINDINGSPatchy left lung opacity is increased. There is no pneumothorax. Heart size is normal. Monitor leads obscure minimal detailIMPRESSIONWorsening patchy pulmonary opacities. Multifocal pneumonia is possible. Villegas virus infection is possible. Clinical correlation recommended. Follow-up to resolution.Electronically signed by: ANNMARIE ROMERO (Jul 28, 2019 03:53:47)
[2019-07-28 05:30] LABS: BASOPHILS # (AUTO) 0.1 X10^3/uL (0.0-0.1); BASOPHILS % (AUTO) 1.6 % (0.2-1.0); HEMOGLOBIN 14.5 g/dL (13.5-18.0); LYMPHOCYTES # (AUTO) 0.8 X10^3/uL (1.3-2.9); LYMPHOCYTES % (AUTO) 14.4 % (21.0-51.0); MEAN CORPUSCULAR HEMOGLOBIN 30.1 pg (27.0-34.0); MEAN CORPUSCULAR HGB CONC 34.5 g/dL (33.0-35.0); MEAN CORPUSCULAR VOLUME 87.1 fL (80.0-100.0); MEAN PLATELET VOLUME 8.2 fL (7.4-11.0); MONOCYTES # (AUTO) 0.3 x10^3/uL (0.3-0.8); MONOCYTES % (AUTO) 4.7 % (0.0-13.0); NEUTROPHILS # (AUTO) 4.3 x10^3/uL (2.2-4.8); NEUTROPHILS % (AUTO) 79.3 % (42.0-75.0); PLATELET COUNT 110 X10^3/uL (150.0-450.0); RED BLOOD COUNT 4.82 X10^6/uL (4.7-6.0); RED CELL DISTRIBUTION WIDTH 13.7 % (11.6-16.5); WHITE BLOOD COUNT 5.4 X10^3/uL (3.6-10.0)
[2019-07-28 05:51] LABS: ALANINE AMINOTRANSFERASE 34 Units/L (12-78); ALBUMIN 3.1 g/dL (3.4-5.0); ALKALINE PHOSPHATASE 64 Units/L (46-116); ASPARTATE AMINO TRANSFERASE 34 Units/L (15-37); BLOOD UREA NITROGEN 12 mg/dL (7-18); CALCIUM 8.2 mg/dL (8.5-10.1); CARBON DIOXIDE 24.9 mmol/L (21-32); CHLORIDE 99 mmol/L (98-107); COR CA(FOR HYPOALB) 8.9 mg/dL (8.5-10.1); CREATININE 1.24 mg/dL (0.70-1.30); SODIUM 135 mmol/L (136-145); TOTAL PROTEIN 6.9 g/dL (6.4-8.2); eGFR NON BLACK RACES > 60 (>60)
[2019-07-28] MEDS ORDERED: MICRO K EXTEN CAP 10 MEQ PO PRN (06:02)
[2019-07-28] MEDS ORDERED: K-DUR TAB 20 MEQ PO PRN (06:02)
[2019-07-28] MEDS ORDERED: POTASSIUM CHLORIDE LIQ 20 MEQ UDC PO PRN (06:02)
[2019-07-28] MEDS ORDERED: POTASSIUM CHL 60 MEQ/NS 0.45% 500 ML IV PRN (06:02)
[2019-07-28] MEDS ORDERED: K-RIDER 10 MEQ/NS 100 ML 10 MEQ/100 ML BAG IV PRN (06:02)
[2019-07-28] MEDS ORDERED: KLOR-CON PO PRN (06:02)
[2019-07-28] MEDS ORDERED: POTASSIUM CHL 40 MEQ/NS 0.45% 500 ML IV PRN (06:02)
[2019-07-28] MEDS ORDERED: MAGNESIUM SULFATE 1 GRAM/100 mL PREMIX 1 G/100 ML BAG IV ONE (06:29)
[2019-07-28] MEDS: MAGNESIUM SULFATE 1 GRAM/100 mL PREMIX 1 GM/100 ML BAG IV PRN ×2 (06:30→21:51)
[2019-07-28] MEDS ORDERED: ROBITUSSIN DM PO SCH (09:00)
[2019-07-28] MEDS ORDERED: ACTEMRA 400 MG in NS 100 ML IV 80 ML IV NR (11:00)
[2019-07-28] MEDS ORDERED: REMDESIVIR (INVESTIGATIONAL DRUG GS-5734) 200 MG in NS 250 ML IV 250 ML IV NR (11:00)
[2019-07-28] MEDS: VSL#3 PO SCH (11:02)
[2019-07-28] MEDS: LEVAQUIN PREMIX IV 750 MG 750 MG/150 ML BAG IV SCH (11:30)
[2019-07-28] MEDS: TUSSIONEX PENNKINETIC SUSP PO SCH ×2 (11:30→22:07)
[2019-07-28] MEDS: TESSALON PERLES PO SCH ×3 (11:30→21:47)
[2019-07-28] MEDS: LOVENOX INJ 40 MG SYR SC SCH (11:30)
[2019-07-28] MEDS ORDERED: MORPHINE SULFATE INJ 2 MG INJ ONE (15:11)
[2019-07-28] MEDS: MORPHINE SULFATE INJ 2 MG INJ IVP PRN (15:46)
[2019-07-28] MEDS ORDERED: COLACE CAP 100 MG PO PRN (20:10)
[2019-07-28] MEDS ORDERED: BUTT CREAM (COMPOUND) TOP PRN (20:58)
[2019-07-28] MEDS ORDERED: ROCEPHIN VIAL 1 GRAM 1 G in NS 100 ML IV + SPIKE MINIBAG* 100 ML IV SCH (21:00)
[2019-07-28] MEDS: MILK OF MAGNESIA PO SCH (21:47)
--- NOTE | 2019-07-28 21:52 | DR.H&P ---
H&P - History & Physical for Day of: H&P Date: 07/28/19 - Chief Complaint Chief Complaint: COUGH, FEVER, WEAKNESS, SOB, EXPOSURE TO COVID-19 - History of Present Illness History of Present Illness: IS A 43 YEAR OLD PATIENT OF [facility]. HE PRESENTED TO THE ER WITH COMPLAINTS OF A DRY COUGH, FEVER, WEAKNESS, AND SHORTNESS OF BREATH X 3 DAYS. HE PREVIOUSLY PRESENTED WITH SAME COMPLAINTS AND WAS DIAGNOSED WITH ASTHMA AND RECEIVED AN INHALER. HE DENIES RELIEF DESPITE USING INHALER. PATIENT DENIES DIRECT EXPOSURE TO COVID, BUT REPORTS THAT HIS SPOUSE HAS HAD DIRECT EXPOSURE. HIS PMH INCLUDES: HTN, GOUT, TONSILLECTOMY, HERNIA REPAIR, AND ORTHOPEDIC SURGERY. ON EXAMINATION, LUNGS ARE NOTED WITH SCATTERED WHEEZING. ON ARRIVAL TO THE ER, VITALS WERE 101.0-121-24-92%-130/85. LABS WERE OBTAINED. ABNORMAL LAB VALUES INCLUDE THE FOLLOWING: PLT COUNT 121, FERRITIN 934, SODIUM 135, CHLORIDE 96, CREATININE 1.59, GLUCOSE 100, LACTIC ACID 2.5, CRP 74.10. AN ABG WAS OBTAINED AND REVEALED: PH 7.520, PC02 28.0, P02 101.0, HC03 22.9, 02 SATURATION 98.0, BASE EXCESS 1.0, Fi02 28.0. URINALYSIS REVEALED: WBC TNTC, LEUKOCYTES 1+, BACTERIA TRACE, NITRITES POSITIVE. RSV, INFLUENZA, AND STREP NEGATIVE. HE WAS SWABBED FOR COVID-19. BLOOD AND URINE CULTURES WERE SET UP. A CHEST XRAY WAS OBTAINED AND REVEALED: Worsening patchy pulmonary opacities. Multifocal pneumonia is possible. Villegas virus infection is possible. Clinical correlation recommended. Follow-up to resolution. AN EKG WAS OBTAINED AND REVEALED: SINUS TACHYCARDIA WITH HR 103. HE WAS GIVEN ROCEPHIN 1G IV X 1 DOSE, AND ACETAMINOPHEN 1000MG IV X 1 DOSE IN THE ER. HE WAS ADMITTED FOR FURTHER EVALUATION AND TREATMENT OF PNEUMONIA, SOB, HYPOXIA, EXPOSURE TO COVID- 19, AND UTI. HE WAS STARTED ON 1/2NS AT 75 ML/HR, LEVAQUIN 750MG IV DAILY, THE POTASSIUM AND MAGNESIUM PROTOCOL, MORPHINE 1-2MG IV Q4H PRN, TESSALON PERLES 200MG PO TID, TUSSIONEX 5ML PO Q12H, AND LOVENOX 40MG SC DAILY. WE WILL ADMINISTER ACTEMRA 400MG IV X 1 DOSE, REMDESIVIR 200MG IV X 1 THEN 100MG IV DAILY TODAY. OTHERWISE, WE PLAN TO FOLLOW UP WITH AM LABS AND CONTINUE TO MONITOR. - Past Medical History Past Medical History: Hypertension, Gout - Past Surgical History Surgical History: Ortho Surgery Additional Surgical History: TONSILLECTOMY, HERNIA REPAIR - Family History Family Medical History: Coronary Artery Disease, Hypertension - Social History Does patient currently use any type of tobacco product: No Have you used tobacco products in the last 12 months: No Does any household member use tobacco: No Alcohol Use: None - Medications Home Medications: No Known Drug Allergies Allergy (Verified 01/06/17 11:23) CONTINUE taking the following medications NK 07/28/19 [History] - Review of Systems Constitutional: Fever, Chills, Weakness Eyes: No Symptoms Reported ENT: No Symptoms Reported Respiratory: Cough, Shortness of Breath, SOB with Excertion, Wheezing Cardiovascular: No Symptoms Reported Gastrointestinal: No Symptoms Reported Genitourinary: No Symptoms Reported Musculoskeletal: No Symptoms Reported Skin: No Symptoms Reported Neurological: Weakness - Physical Exam Vital Signs: Temperature 97.6 F Pulse Rate [Brachial] 69 Pulse Rate 82 Respiratory Rate 20 Blood Pressure [Right Arm] 143/99 Blood Pressure 130/82 O2 Sat by Pulse Oximetry 98 Oriented: Normal Eyes: Normal Ear: Normal Nose: Normal Throat: Normal Respiratory: Wheezes Throughout Cardiovascular: Tachycardia : Normal Auscultation: Bowel Sounds: Normal Palpation: Normal Tenderness: Normal Skin: Normal Musculoskeletal: Normal Psychiatric: Normal Mood Description: Calm Affect: Normal Speech Pattern: Clear - Assessment/Plan (1) Pneumonia Qualifiers: Pneumonia type: due to unspecified organism Laterality: bilateral Lung location: unspecified part of lung Qualified Code(s): J18.9 - Pneumonia, unspecified organism Status: Acute Plan: ADMIT, 1/2NS AT 75 ML/HR, LEVAQUIN 750MG IV DAILY, THE POTASSIUM AND MAGNESIUM PROTOCOL, MORPHINE 1-2MG IV Q4H PRN, TESSALON PERLES 200MG PO TID, TUSSIONEX 5ML PO Q12H, AND LOVENOX 40MG SC DAILY. ACTEMRA 400MG IV X 1 DOSE, REMDESIVIR 200MG IV X 1 THEN 100MG IV DAILY TODAY. (2) Urinary tract infection Qualifiers: Urinary tract infection type: acute cystitis Hematuria presence: without hematuria Qualified Code(s): N30.00 - Acute cystitis without hematuria Status: Acute (3) Hypoxia Status: Acute (4) Exposure to COVID-19 virus Status: Acute (5) SOB (shortness of breath) Status: Acute (6) HTN (hypertension) Qualifiers: Hypertension type: essential hypertension Qualified Code(s): I10 - Essential (primary) hypertension Status: Chronic (7) Gout Qualifiers: Gout site: unspecified site Gout etiology: unspecified cause Chronicity: unspecified Qualified Code(s): M10.9 - Gout, unspecified Status: Chronic - Allergies Allergies/Adverse Reactions: Allergies Allergy/AdvReac Type Severity Reaction Status Date / Time No Known Drug Allergies Allergy Verified 01/06/17 11:23
[2019-07-29] MEDS: MORPHINE SULFATE INJ 2 MG INJ IVP PRN ×3 (01:50→21:11)
[2019-07-29] MEDS: SOLU-Medrol 40 MG VIAL IVP SCH ×3 (05:00→21:14)
[2019-07-29] MEDS: TESSALON PERLES PO SCH ×3 (05:01→21:14)
[2019-07-29 05:37] LABS: ABG BASE EXCESS -0.3 mmol/L (-2.0-2.0); ABG HCO3 22.6 mmol/L (22-26)
[2019-07-29 05:37] LABS: BASOPHILS % (AUTO) 0.2 % (0.2-1.0); EOSINOPHILS % (AUTO) 0.4 % (0.9-2.9); HEMOGLOBIN 14.3 g/dL (13.5-18.0); LYMPHOCYTES # (AUTO) 0.8 X10^3/uL (1.3-2.9); LYMPHOCYTES % (AUTO) 17.7 % (21.0-51.0); MEAN CORPUSCULAR HEMOGLOBIN 29.6 pg (27.0-34.0); MEAN CORPUSCULAR HGB CONC 34.1 g/dL (33.0-35.0); MEAN CORPUSCULAR VOLUME 86.9 fL (80.0-100.0); MEAN PLATELET VOLUME 8.8 fL (7.4-11.0); MONOCYTES # (AUTO) 0.2 x10^3/uL (0.3-0.8); MONOCYTES % (AUTO) 5.5 % (0.0-13.0); NEUTROPHILS # (AUTO) 3.3 x10^3/uL (2.2-4.8); NEUTROPHILS % (AUTO) 76.2 % (42.0-75.0); PLATELET COUNT 120 X10^3/uL (150.0-450.0); RED BLOOD COUNT 4.83 X10^6/uL (4.7-6.0); RED CELL DISTRIBUTION WIDTH 13.6 % (11.6-16.5); WHITE BLOOD COUNT 4.3 X10^3/uL (3.6-10.0)
[2019-07-29 05:39] LABS: ABG ALLEN TEST POS
[2019-07-29 05:48] LABS: ALANINE AMINOTRANSFERASE 33 Units/L (12-78); ALBUMIN 3.2 g/dL (3.4-5.0); ALKALINE PHOSPHATASE 66 Units/L (46-116); ASPARTATE AMINO TRANSFERASE 40 Units/L (15-37); BLOOD UREA NITROGEN 13 mg/dL (7-18); CALCIUM 8.3 mg/dL (8.5-10.1); CARBON DIOXIDE 23.2 mmol/L (21-32); CHLORIDE 98 mmol/L (98-107); COR CA(FOR HYPOALB) 8.9 mg/dL (8.5-10.1); CREATININE 1.18 mg/dL (0.70-1.30); MAGNESIUM 2.3 mg/dL (1.7-2.9); SODIUM 133 mmol/L (136-145); TOTAL PROTEIN 7.2 g/dL (6.4-8.2); eGFR NON BLACK RACES > 60 (>60)
[2019-07-29] MEDS: NS 1/2 1000 ML IV 1,000 ML IV SCH ×2 (06:05→19:09)
--- NOTE | 2019-07-29 06:15 | RAD ---
HISTORYSOBSTUDYPortable AP [id number] normal heart size. Patchy pulmonary densities are again no basilio in the periphery of the left lung and increasing in the periphery of the right upper lobe. No hil ar adenopathy, mediastinal deformity, pneumothorax or pleural fluid.IMPRESSIONSlight interval increas e in prominence of patchy bilateral pulmonary densities consistent with multifocal pneumonia.Electron ically signed by: CLARICE QUINN (Jul 29, 2019 06:14:39)
[2019-07-29] MEDS: LEVAQUIN PREMIX IV 750 MG 750 MG/150 ML BAG IV SCH (08:30)
[2019-07-29] MEDS ORDERED: VENTOLIN or PROAIR HFA IN PRN (09:19)
[2019-07-29] MEDS: VSL#3 PO SCH (09:50)
[2019-07-29] MEDS: REMDESIVIR (INVESTIGATIONAL DRUG GS-5734) 100 MG in NS 250 ML IV 250 ML IV SCH (09:50)
[2019-07-29] MEDS: MILK OF MAGNESIA PO SCH ×4 (09:50→20:28)
[2019-07-29] MEDS: LOVENOX INJ 40 MG SYR SC SCH (09:50)
[2019-07-29] MEDS: TUSSIONEX PENNKINETIC SUSP PO SCH ×2 (10:00→23:28)
[2019-07-29] MEDS: KLONOPIN TAB 0.5 MG PO PRN ×2 (10:20→20:29)
[2019-07-29] MEDS ORDERED: TESSALON PERLES PO ONE (14:00)
[2019-07-29] MEDS ORDERED: SOLU-Medrol 40 MG VIAL ONE (14:00)
[2019-07-29] MEDS ORDERED: NS 1/2 1000 ML IV 1,000 ML IV ONE (18:59)
[2019-07-30] MEDS: MORPHINE SULFATE INJ 2 MG INJ IVP PRN ×2 (01:50→21:28)
[2019-07-30] MEDS ORDERED: NS 1/2 1000 ML IV 1,000 ML IV ONE (04:06)
[2019-07-30 04:11] LABS: ABG ALLEN TEST POS; ABG BASE EXCESS -1.2 mmol/L (-2.0-2.0); ABG HCO3 23.6 mmol/L (22-26)
[2019-07-30] MEDS: SOLU-Medrol 40 MG VIAL IVP SCH ×3 (05:02→21:26)
[2019-07-30] MEDS: TESSALON PERLES PO SCH ×3 (05:03→21:26)
[2019-07-30 05:47] LABS: BASOPHILS % (AUTO) 0.2 % (0.2-1.0); HEMATOCRIT 44.7 % (42.0-54.0); HEMOGLOBIN 15.3 g/dL (13.5-18.0); LYMPHOCYTES # (AUTO) 0.7 X10^3/uL (1.3-2.9); LYMPHOCYTES % (AUTO) 14.8 % (21.0-51.0); MEAN CORPUSCULAR HEMOGLOBIN 29.9 pg (27.0-34.0); MEAN CORPUSCULAR HGB CONC 34.2 g/dL (33.0-35.0); MEAN CORPUSCULAR VOLUME 87.3 fL (80.0-100.0); MEAN PLATELET VOLUME 8.9 fL (7.4-11.0); MONOCYTES # (AUTO) 0.3 x10^3/uL (0.3-0.8); MONOCYTES % (AUTO) 6.4 % (0.0-13.0); NEUTROPHILS # (AUTO) 3.6 x10^3/uL (2.2-4.8); NEUTROPHILS % (AUTO) 78.6 % (42.0-75.0); PLATELET COUNT 169 X10^3/uL (150.0-450.0); RED BLOOD COUNT 5.12 X10^6/uL (4.7-6.0); RED CELL DISTRIBUTION WIDTH 13.7 % (11.6-16.5); WHITE BLOOD COUNT 4.6 X10^3/uL (3.6-10.0)
[2019-07-30 06:00] LABS: ALANINE AMINOTRANSFERASE 37 Units/L (12-78); ALBUMIN 3.5 g/dL (3.4-5.0); ALKALINE PHOSPHATASE 71 Units/L (46-116); ASPARTATE AMINO TRANSFERASE 38 Units/L (15-37); BLOOD UREA NITROGEN 16 mg/dL (7-18); CARBON DIOXIDE 25.4 mmol/L (21-32); CHLORIDE 99 mmol/L (98-107); COR NA(FOR HYPERGLY) 136 mmol/L (136-145); CREATININE 1.25 mg/dL (0.70-1.30); SODIUM 135 mmol/L (136-145); TOTAL PROTEIN 7.9 g/dL (6.4-8.2); eGFR NON BLACK RACES > 60 (>60)
--- NOTE | 2019-07-30 06:30 | RAD ---
Chest AP portableIndication: DyspneaCOMPARISONJune 2019FINDINGSChin obscures the right apex. Patchy left midlung opacity noted. Subtle peripheral physis in the right lung suggested.IMPRESSIONBilateral pulmonary opacities suggesting pneumonia. Correlate clinically for any evidence of viral pneumonitis.Electronically signed by: ANNMARIE ROMERO (Jul 30, 2019 06:29:41)
[2019-07-30] MEDS ORDERED: VSL#3 PO ONE (09:36)
[2019-07-30] MEDS: NS 1/2 1000 ML IV 1,000 ML IV SCH (09:37)
[2019-07-30] MEDS: VSL#3 PO SCH (09:37)
[2019-07-30] MEDS: LEVAQUIN PREMIX IV 750 MG 750 MG/150 ML BAG IV SCH (09:38)
[2019-07-30] MEDS: REMDESIVIR (INVESTIGATIONAL DRUG GS-5734) 100 MG in NS 250 ML IV 250 ML IV SCH (09:51)
--- NOTE | 2019-07-30 10:04 | PCM.PROG ---
Progress Note - Progress Note for Day of Date of Exam: 07/29/19 - Subjective Subjective: IS BEING TREATED FOR PNEUMONIA, UTI, SOB, HYPOXIA, AND EXPOSURE TO COVID-19. TODAY, HE IS ALERT AND ORIENTED, SITTING UP IN BE ON MORNING ROUNDS. HE CONTINUES WITH COMPLAINTS OF COUGH AND SHORTNESS OF BREATH TODAY. HE REPORTS THAT SHORTNESS OF BREATH IS WORSE COMPARED TO YESTERDAY. ON EXAMINATION, HEART IS REGULAR IN RATE AND RHYTHM. BILATERAL LUNGS ARE NOTED WITH SCATTERED WHEEZING THROUGHOUT. ABDOMEN IS ROUND, SOFT, AND NON-TENDER WITH NORMAL BOWEL SOUNDS NOTED IN ALL QUADRANTS. HIS VITALS THIS MORNING ARE: 98.0-81-30-98%NC-139/85. LABS WERE OBTAINED. ABNORMAL LAB VALUES INCLUDE THE FOLLOWING: PLT COUNT 120, SODIUM 133, CALCIUM 8.3, FERRITIN 872, AST 40, CRP 77.20, ALBUMIN 3.2. COVID-19 PENDING. URINE AND BLOOD CULTURES ALSO PENDING. PRELIMINARY URINE CULTURE REPORTS GROWTH OF GRAM NEGATIVE RODS. A CHEST XRAY WAS OBTAINED AND REVEALED: Slight interval increase in prominence of patchy bilateral pulmonary densities consistent with multifocal pneumonia. HE IS CURRENTLY RECEIVING 1/2NS AT 75 ML/HR, LEVAQUIN 750MG IV DAILY, REMDESIVIR 100MG IV DAILY, THE POTASSIUM AND MAGNESIUM PROTOCOL, MORPHINE 1-2MG IV Q4H PRN, TESSALON PERLES 200MG PO TID, TUSSIONEX 5ML PO Q12H, PROAIR INHALER 2 PUFFS Q4H PRN, AND LOVENOX 40MG SC DAILY. WE WILL CONTINUE WITH CURRENT PLAN OF CARE TODAY AND START HEATED HIGH FLOW OXYGEN AND SOLU-MEDROL 40MG IV Q8H. OTHERWISE, WE WILL FOLLOW UP WITH AM LABS AND CHEST XRAY AND CONTINUE TO MONITOR. - Past Medical Family Social History Past Med/Fam/Surg Hx: No changes since H&P Allergies: Allergies No Known Drug Allergies Allergy (Verified 01/06/17 11:23) - Review of Systems ROS: No change since H&P - Vital Signs and I&O's Vital Signs: Temperature 98.7 F Pulse Rate [Brachial] 53 Pulse Rate 81 Respiratory Rate 21 Blood Pressure [Right Arm] 106/63 Blood Pressure 139/94 O2 Sat by Pulse Oximetry 96 Intake and Output: Intake & Output 07/27/19 07/28/19 07/29/19 07/30/19 11:59 11:59 11:59 11:59 Intake Total 400 / 400 3511 / 3511 2800 / 2800 Output Total 0 / 0 Balance 400 / 400 3511 / 3511 2800 / 2800 - Physical Exam Oriented: Normal Eyes: Normal Ear: Normal Nose: Normal Throat: Normal Respiratory: Generalized, Wheezes Cardiovascular: Normal : Normal Auscultation: Bowel Sounds: Normal Palpation: Normal Tenderness: Normal Skin: Normal Musculoskeletal: Normal Psychiatric: Normal Mood Description: Calm Affect: Normal Speech Pattern: Clear, Appropriate - Laboratory and Diagnostics Result Diagrams: 07/30/19 04:38 07/30/19 04:38 Labs: 07/28/19 03:07 Urine,Clean Catch Urine Culture - Final Klebsiella Pneumoniae 07/27/19 22:10 Blood Blood Culture - Preliminary 07/27/19 22:04 Blood Blood Culture - Preliminary Laboratory WBC 4.6 X10^3/uL (3.6-10.0) 07/30/19 04:38 RBC 5.12 X10^6/uL (4.7-6.0) 07/30/19 04:38 Hgb 15.3 g/dL (13.5-18.0) 07/30/19 04:38 Hct 44.7 % (42.0-54.0) 07/30/19 04:38 MCV 87.3 fL (80.0-100.0) 07/30/19 04:38 MCH 29.9 pg (27.0-34.0) 07/30/19 04:38 MCHC 34.2 g/dL (33.0-35.0) 07/30/19 04:38 RDW 13.7 % (11.6-16.5) 07/30/19 04:38 Plt Count 169 X10^3/uL (150.0-450.0) 07/30/19 04:38 MPV 8.9 fL (7.4-11.0) 07/30/19 04:38 Neut % (Auto) 78.6 % (42.0-75.0) H 07/30/19 04:38 Lymph % (Auto) 14.8 % (21.0-51.0) L 07/30/19 04:38 [place] % (Auto) 6.4 % (0.0-13.0) 07/30/19 04:38 Eos % (Auto) 0.0 % (0.9-2.9) L 07/30/19 04:38 Baso % (Auto) 0.2 % (0.2-1.0) 07/30/19 04:38 Neut # (Auto) 3.6 x10^3/uL (2.2-4.8) 07/30/19 04:38 Lymph # (Auto) 0.7 X10^3/uL (1.3-2.9) L 07/30/19 04:38 [place] # (Auto) 0.3 x10^3/uL (0.3-0.8) 07/30/19 04:38 Eos # (Auto) 0.0 x10^3/uL (0.0-0.2) 07/30/19 04:38 Baso # (Auto) 0.0 X10^3/uL (0.0-0.1) 07/30/19 04:38 Absolute Nucleated RBC 0.5 /100WBC 07/30/19 04:38 Sample Site Lr 07/30/19 04:00 ABG pH 7.390 (7.35-7.45) 07/30/19 04:00 ABG pCO2 39.0 mmHg (35.0-45.0) 07/30/19 04:00 ABG pO2 73.0 mmHg (80.0-100.0) L 07/30/19 04:00 ABG HCO3 23.6 mmol/L (22-26) 07/30/19 04:00 ABG O2 Saturation 94.0 % (90-100) 07/30/19 04:00 ABG Base Excess -1.2 mmol/L (-2.0-2.0) 07/30/19 04:00 [place] Test Pos 07/30/19 04:00 A-a Gradient 28.0 mmHg 07/30/19 04:00 FiO2 21.0 07/30/19 04:00 Blood Gas Comments Hu well ae 07/30/19 04:00 Sodium 135 mmol/L (136-145) L 07/30/19 04:38 Corrected Sodium 136 mmol/L (136-145) 07/30/19 04:38 Potassium 4.4 mmol/L (3.5-5.1) 07/30/19 04:38 Chloride 99 mmol/L (98-107) 07/30/19 04:38 Carbon Dioxide 25.4 mmol/L (21-32) 07/30/19 04:38 BUN 16 mg/dL (7-18) 07/30/19 04:38 Creatinine 1.25 mg/dL (0.70-1.30) 07/30/19 04:38 Est GFR (MDRD) Af Amer > 60 (>60) 07/30/19 04:38 Est GFR (MDRD) Non-Af > 60 (>60) 07/30/19 04:38 Glucose 127 mg/dL (65-99) H 07/30/19 04:38 Lactic Acid 2.5 mmol/L (0.4-2.0) H 07/27/19 22:04 Calcium 9.0 mg/dL (8.5-10.1) 07/30/19 04:38 Corrected Calcium TNP 07/30/19 04:38 Magnesium 2.3 mg/dL (1.7-2.9) 07/29/19 04:58 Ferritin 1328 ng/mL (26-388) H 07/30/19 04:38 Total Bilirubin 0.40 mg/dL (0.2-1.0) 07/30/19 04:38 AST 38 Units/L (15-37) H 07/30/19 04:38 ALT 37 Units/L (12-78) 07/30/19 04:38 Alkaline Phosphatase 71 Units/L (46-116) 07/30/19 04:38 C-Reactive Protein 34.30 mg/L (0-3.0) H 07/30/19 04:38 Total Protein 7.9 g/dL (6.4-8.2) 07/30/19 04:38 Albumin 3.5 g/dL (3.4-5.0) 07/30/19 04:38 Globulin 4.4 g/dL (2.5-4.5) 07/30/19 04:38 Albumin/Globulin Ratio 0.8 Ratio (1.1-2.1) L 07/30/19 04:38 Specimen Type Clean catch urine 07/28/19 03:07 Urine Color Yellow (YELLOW) 07/28/19 03:07 Urine Appearance Cloudy (CLEAR) 07/28/19 03:07 Urine pH 6.0 (5.0 - 8.0) 07/28/19 03:07 Ur Specific [place] 1.010 (1.000-1.030) 07/28/19 03:07 Urine Protein 2+ (NEGATIVE) 07/28/19 03:07 Urine Glucose (UA) Negative (NEGATIVE) 07/28/19 03:07 Urine Ketones 4+ (NEGATIVE) 07/28/19 03:07 Urine Occult Blood 2+ (NEGATIVE) 07/28/19 03:07 Urine Nitrite Positive (NEGATIVE) 07/28/19 03:07 Urine Bilirubin Negative (NEGATIVE) 07/28/19 03:07 Urine Urobilinogen 1+ (NORMAL) 07/28/19 03:07 Ur Leukocyte Esterase 1+ (NEGATIVE) 07/28/19 03:07 Urine RBC 0-2 /HPF (0-3) 07/28/19 03:07 Urine WBC Tntc /HPF (0-5) A 07/28/19 03:07 Ur Squamous Epith Cells Negative /HPF (NEGATIVE) 07/28/19 03:07 Urine Bacteria Trace /HPF (NEGATIVE) 07/28/19 03:07 Ur Culture Indicated? Yes/culture set up 07/28/19 03:07 RSV Nasal Swab Negative (NEGATIVE) 07/27/19 22:45 Influenza Type A Ag Negative-presumptive (NEGATIVE) 07/27/19 22:16 Influenza Type B Ag Negative-presumptive (NEGATIVE) 07/27/19 22:16 S. pyogenes (TEM-PCR) Not detected (NOT DETECT) 07/27/19 22:16 - Plan (1) Pneumonia Status: Acute Qualifiers: Pneumonia type: due to unspecified organism Laterality: bilateral Lung location: unspecified part of lung Qualified Code(s): J18.9 - Pneumonia, unspecified organism Plan: 1/2NS AT 75 ML/HR, LEVAQUIN 750MG IV DAILY, THE POTASSIUM AND MAGNESIUM PROTOCOL, SOLU-MEDROL 40MG IV Q8H, MORPHINE 1-2MG IV Q4H PRN, TESSALON PERLES 200MG PO TID, TUSSIONEX 5ML PO Q12H, AND LOVENOX 40MG SC DAILY. ACTEMRA 400MG IV X 1 DOSE, REMDESIVIR 200MG IV X 1 THEN 100MG IV DAILY TODAY. (2) Urinary tract infection Status: Acute Qualifiers: Urinary tract infection type: acute cystitis Hematuria presence: without hematuria Qualified Code(s): N30.00 - Acute cystitis without hematuria (3) Hypoxia Status: Acute (4) Exposure to COVID-19 virus Status: Acute (5) SOB (shortness of breath) Status: Acute (6) HTN (hypertension) Status: Chronic Qualifiers: Hypertension type: essential hypertension Qualified Code(s): I10 - Essen tial (primary) hypertension (7) Gout Status: Chronic Qualifiers: Gout site: unspecified site Gout etiology: unspecified cause Chronicity: unspecified Qualified Code(s): M10.9 - Gout, unspecified
[2019-07-30] MEDS: LOVENOX INJ 40 MG SYR SC SCH (10:26)
[2019-07-30] MEDS: TUSSIONEX PENNKINETIC SUSP PO SCH ×2 (10:40→22:21)
[2019-07-30] MEDS: DUONEB 0.5 MG/3 MG (3 mL) NEB SCH ×4 (12:25→21:50)
[2019-07-30] MEDS: PULMICORT NEB TX 0.5 MG NEB SCH ×2 (12:31→21:50)
[2019-07-30] MEDS: KLONOPIN TAB 0.5 MG PO PRN (21:26)
[2019-07-31] MEDS: NS 1/2 1000 ML IV 1,000 ML IV SCH ×3 (00:48→18:37)
[2019-07-31] MEDS ORDERED: NS 1/2 1000 ML IV 1,000 ML IV ONE ×2 (00:48→18:17)
[2019-07-31] MEDS: SOLU-Medrol 40 MG VIAL IVP SCH ×3 (05:00→22:38)
[2019-07-31] MEDS: TESSALON PERLES PO SCH ×3 (05:00→22:41)
[2019-07-31 05:22] LABS: BASOPHILS % (AUTO) 0.1 % (0.2-1.0); HEMATOCRIT 41.4 % (42.0-54.0); HEMOGLOBIN 13.9 g/dL (13.5-18.0); LYMPHOCYTES # (AUTO) 0.9 X10^3/uL (1.3-2.9); LYMPHOCYTES % (AUTO) 8.5 % (21.0-51.0); MEAN CORPUSCULAR HEMOGLOBIN 29.5 pg (27.0-34.0); MEAN CORPUSCULAR HGB CONC 33.7 g/dL (33.0-35.0); MEAN CORPUSCULAR VOLUME 87.6 fL (80.0-100.0); MEAN PLATELET VOLUME 8.7 fL (7.4-11.0); MONOCYTES # (AUTO) 0.7 x10^3/uL (0.3-0.8); NEUTROPHILS # (AUTO) 8.4 x10^3/uL (2.2-4.8); NEUTROPHILS % (AUTO) 84.4 % (42.0-75.0); PLATELET COUNT 186 X10^3/uL (150.0-450.0); RED BLOOD COUNT 4.72 X10^6/uL (4.7-6.0); RED CELL DISTRIBUTION WIDTH 13.9 % (11.6-16.5)
[2019-07-31 05:30] LABS: ABG BASE EXCESS -0.3 mmol/L (-2.0-2.0); ABG HCO3 22.1 mmol/L (22-26)
[2019-07-31 05:31] LABS: ABG ALLEN TEST POS
[2019-07-31 05:36] LABS: ALANINE AMINOTRANSFERASE 33 Units/L (12-78); ALKALINE PHOSPHATASE 58 Units/L (46-116); ASPARTATE AMINO TRANSFERASE 28 Units/L (15-37); BLOOD UREA NITROGEN 16 mg/dL (7-18); CALCIUM 8.4 mg/dL (8.5-10.1); CARBON DIOXIDE 27.1 mmol/L (21-32); CHLORIDE 101 mmol/L (98-107); COR CA(FOR HYPOALB) 9.2 mg/dL (8.5-10.1); COR NA(FOR HYPERGLY) 137 mmol/L (136-145); CREATININE 1.08 mg/dL (0.70-1.30); SODIUM 136 mmol/L (136-145); TOTAL PROTEIN 6.7 g/dL (6.4-8.2); eGFR NON BLACK RACES > 60 (>60)
--- NOTE | 2019-07-31 05:58 | RAD ---
Chest AP portableIndication: Dyspnea.Comparison July 30, 2019FINDINGSWorsening bilateral pulmonary patchy opacities noted without pneumothorax, large effusion or dense consolidation. Heart size is upper limits of normalIMPRESSIONWorsening bilateral pulmonary opacities suggesting multifocal pneumonia. Villegas virus infection is possible. Correlate clinically.Electronically signed by: ANNMARIE ROMERO (Jul 31, 2019 05:57:48)
[2019-07-31] MEDS: DUONEB 0.5 MG/3 MG (3 mL) NEB SCH ×3 (06:24→20:42)
--- NOTE | 2019-07-31 08:50 | PCM.PROG ---
Progress Note - Progress Note for Day of Date of Exam: 07/30/19 - Subjective Subjective: IS BEING TREATED FOR PNEUMONIA, UTI, SOB, HYPOXIA, AND EXPOSURE TO COVID-19. TODAY, HE IS ALERT AND ORIENTED, SITTING UP IN BE ON MORNING ROUNDS. HE CONTINUES WITH COMPLAINTS OF COUGH AND SHORTNESS OF BREATH TODAY. HE REPORTS SLIGHT IMPROVEMENT IN SYMPTOMS. ON EXAMINATION, HEART IS REGULAR IN RATE AND RHYTHM. BILATERAL LUNGS ARE NOTED WITH SCATTERED WHEEZING THROUGHOUT. ABDOMEN IS ROUND, SOFT, AND NON-TENDER WITH NORMAL BOWEL SOUNDS NOTED IN ALL QUADRANTS. HIS VITALS THIS MORNING ARE: 98.3-71-20-95%-139/94. LABS WERE OBTAINED. ABNORMAL LAB VALUES INCLUDE THE FOLLOWING: SODIUM 135, GLUCOSE 127, FERRITIN 1328, CRP 34.30. COVID-19 POSITIVE. URINE CULTURE REPORTS GROWTH OF KLEBSIELLA PNEUMONIAE. BLOOD CULTURES ARE PENDING. A CHEST XRAY WAS OBTAINED AND REVEALED: Bilateral pulmonary opacities suggesting pneumonia. Correlate clinically for any evidence of viral pneumonitis. HE IS CURRENTLY RECEIVING 1/2NS AT 75 ML/HR, LEVAQUIN 750MG IV DAILY, REMDESIVIR 100MG IV DAILY, THE POTASSIUM AND MAGNESIUM PROTOCOL, MORPHINE 1-2MG IV Q4H PRN, TESSALON PERLES 200MG PO TID, TUSSIONEX 5ML PO Q12H, SOLU-MEDROL 40MG IV Q8H, PROAIR INHALER 2 PUFFS Q4H PRN, AND LOVENOX 40MG SC DAILY. HE IS UTILIZING OXYGEN VIA NASAL CANNULA. WE WILL DISCONTINUE THE PROAIR INHALER AND ADD DUONEBS TID AND PULMICORT NEBS BID. OTHERWISE, WE WILL FOLLOW UP WITH AM LABS AND CHEST XRAY AND CONTINUE TO MONITOR. - Past Medical Family Social History Past Med/Fam/Surg Hx: No changes since H&P Allergies: Allergies No Known Drug Allergies Allergy (Verified 01/06/17 11:23) - Review of Systems ROS: No change since H&P - Vital Signs and I&O's Vital Signs: Temperature 97.6 F Pulse Rate [Brachial] 53 Pulse Rate 68 Respiratory Rate 24 Blood Pressure [Right Arm] 106/63 Blood Pressure 120/62 O2 Sat by Pulse Oximetry 96 Intake and Output: Intake & Output 07/28/19 07/29/19 07/30/19 07/31/19 11:59 11:59 11:59 11:59 Intake Total 400 / 400 3511 / 3511 2800 / 2800 3255 / 3255 Output Total 0 / 0 2 / 2 Balance 400 / 400 3511 / 3511 2800 / 2800 3253 / 3253 - Physical Exam Oriented: Normal Eyes: Normal Ear: Normal Nose: Normal Throat: Normal Respiratory: Generalized, Wheezes Cardiovascular: Normal : Normal Auscultation: Bowel Sounds: Normal Palpation: Normal Tenderness: Normal Skin: Normal Musculoskeletal: Normal Psychiatric: Normal Mood Description: Calm Affect: Normal Speech Pattern: Clear, Appropriate - Laboratory and Diagnostics Result Diagrams: 07/31/19 04:35 07/31/19 04:35 Labs: 07/28/19 03:07 Urine,Clean Catch Urine Culture - Final Klebsiella Pneumoniae 07/27/19 22:10 Blood Blood Culture - Preliminary 07/27/19 22:04 Blood Blood Culture - Preliminary Laboratory WBC 10.0 X10^3/uL (3.6-10.0) 07/31/19 04:35 RBC 4.72 X10^6/uL (4.7-6.0) 07/31/19 04:35 Hgb 13.9 g/dL (13.5-18.0) 07/31/19 04:35 Hct 41.4 % (42.0-54.0) L 07/31/19 04:35 MCV 87.6 fL (80.0-100.0) 07/31/19 04:35 MCH 29.5 pg (27.0-34.0) 07/31/19 04:35 MCHC 33.7 g/dL (33.0-35.0) 07/31/19 04:35 RDW 13.9 % (11.6-16.5) 07/31/19 04:35 Plt Count 186 X10^3/uL (150.0-450.0) 07/31/19 04:35 MPV 8.7 fL (7.4-11.0) 07/31/19 04:35 Neut % (Auto) 84.4 % (42.0-75.0) H 07/31/19 04:35 Lymph % (Auto) 8.5 % (21.0-51.0) L 07/31/19 04:35 [place] % (Auto) 7.0 % (0.0-13.0) 07/31/19 04:35 Eos % (Auto) 0.0 % (0.9-2.9) L 07/31/19 04:35 Baso % (Auto) 0.1 % (0.2-1.0) L 07/31/19 04:35 Neut # (Auto) 8.4 x10^3/uL (2.2-4.8) H 07/31/19 04:35 Lymph # (Auto) 0.9 X10^3/uL (1.3-2.9) L 07/31/19 04:35 [place] # (Auto) 0.7 x10^3/uL (0.3-0.8) 07/31/19 04:35 Eos # (Auto) 0.0 x10^3/uL (0.0-0.2) 07/31/19 04:35 Baso # (Auto) 0.0 X10^3/uL (0.0-0.1) 07/31/19 04:35 Absolute Nucleated RBC 0.1 /100WBC 07/31/19 04:35 Sample Site Lr 07/31/19 05:00 ABG pH 7.490 (7.35-7.45) H 07/31/19 05:00 ABG pCO2 29.0 mmHg (35.0-45.0) L 07/31/19 05:00 ABG pO2 97.0 mmHg (80.0-100.0) 07/31/19 05:00 ABG HCO3 22.1 mmol/L (22-26) 07/31/19 05:00 ABG O2 Saturation 98.0 % (90-100) 07/31/19 05:00 ABG Base Excess -0.3 mmol/L (-2.0-2.0) 07/31/19 05:00 [place] Test Pos 07/31/19 05:00 A-a Gradient 95.0 mmHg 07/31/19 05:00 FiO2 32.0 07/31/19 05:00 Blood Gas Comments [facility] well 07/31/19 05:00 Sodium 136 mmol/L (136-145) 07/31/19 04:35 Corrected Sodium 137 mmol/L (136-145) 07/31/19 04:35 Potassium 4.6 mmol/L (3.5-5.1) 07/31/19 04:35 Chloride 101 mmol/L (98-107) 07/31/19 04:35 Carbon Dioxide 27.1 mmol/L (21-32) 07/31/19 04:35 BUN 16 mg/dL (7-18) 07/31/19 04:35 Creatinine 1.08 mg/dL (0.70-1.30) 07/31/19 04:35 Est GFR (MDRD) Af Amer > 60 (>60) 07/31/19 04:35 Est GFR (MDRD) Non-Af > 60 (>60) 07/31/19 04:35 Glucose 152 mg/dL (65-99) H 07/31/19 04:35 Lactic Acid 2.5 mmol/L (0.4-2.0) H 07/27/19 22:04 Calcium 8.4 mg/dL (8.5-10.1) L 07/31/19 04:35 Corrected Calcium 9.2 mg/dL (8.5-10.1) 07/31/19 04:35 Magnesium 2.3 mg/dL (1.7-2.9) 07/29/19 04:58 Ferritin 733 ng/mL (26-388) H 07/31/19 04:35 Total Bilirubin 0.30 mg/dL (0.2-1.0) 07/31/19 04:35 AST 28 Units/L (15-37) 07/31/19 04:35 ALT 33 Units/L (12-78) 07/31/19 04:35 Alkaline Phosphatase 58 Units/L (46-116) 07/31/19 04:35 C-Reactive Protein 11.90 mg/L (0-3.0) H 07/31/19 04:35 Total Protein 6.7 g/dL (6.4-8.2) 07/31/19 04:35 Albumin 3.0 g/dL (3.4-5.0) L 07/31/19 04:35 Globulin 3.7 g/dL (2.5-4.5) 07/31/19 04:35 Albumin/Globulin Ratio 0.8 Ratio (1.1-2.1) L 07/31/19 04:35 Specimen Type Clean catch urine 07/28/19 03:07 Urine Color Yellow (YELLOW) 07/28/19 03:07 Urine Appearance Cloudy (CLEAR) 07/28/19 03:07 Urine pH 6.0 (5.0 - 8.0) 07/28/19 03:07 Ur Specific [place] 1.010 (1.000-1.030) 07/28/19 03:07 Urine Protein 2+ (NEGATIVE) 07/28/19 03:07 Urine Glucose (UA) Negative (NEGATIVE) 07/28/19 03:07 Urine Ketones 4+ (NEGATIVE) 07/28/19 03:07 Urine Occult Blood 2+ (NEGATIVE) 07/28/19 03:07 Urine Nitrite Positive (NEGATIVE) 07/28/19 03:07 Urine Bilirubin Negative (NEGATIVE) 07/28/19 03:07 Urine Urobilinogen 1+ (NORMAL) 07/28/19 03:07 Ur Leukocyte Esterase 1+ (NEGATIVE) 07/28/19 03:07 Urine RBC 0-2 /HPF (0-3) 07/28/19 03:07 Urine WBC Tntc /HPF (0-5) A 07/28/19 03:07 Ur Squamous Epith Cells Negative /HPF (NEGATIVE) 07/28/19 03:07 Urine Bacteria Trace /HPF (NEGATIVE) 07/28/19 03:07 Ur Culture Indicated? Yes/culture set up 07/28/19 03:07 RSV Nasal Swab Negative (NEGATIVE) 07/27/19 22:45 Influenza Type A Ag Negative-presumptive (NEGATIVE) 07/27/19 22:16 Influenza Type B Ag Negative-presumptive (NEGATIVE) 07/27/19 22:16 S. pyogenes (TEM-PCR) Not detected (NOT DETECT) 07/27/19 22:16 Miscellaneous Test Covid 19 07/27/19 22:16 - Plan (1) Pneumonia Status: Acute Qualifiers: Pneumonia type: due to unspecified organism Laterality: bilateral Lung location: unspecified part of lung Qualified Code(s): J18.9 - Pneumonia, unspecified organism Plan: 1/2NS AT 75 ML/HR, LEVAQUIN 750MG IV DAILY, THE POTASSIUM AND MAGNESIUM PROTOCOL, SOLU-MEDROL 40MG IV Q8H, MORPHINE 1-2MG IV Q4H PRN, TESSALON PERLES 200MG PO TID, TUSSIONEX 5ML PO Q12H, AND LOVENOX 40MG SC DAILY, DUONEBS TID AND PULMICORT NEBS BID (2) Urinary tract infection Status: Acute Qualifiers: Urinary tract infection type: acute cystitis Hematuria presence: without hematuria Qualified Code(s): N30.00 - Acute cystitis without hematuria (3) Hypoxia Status: Acute (4) Exposure to COVID-19 virus Status: Acute (5) SOB (shortness of breath) Status: Acute (6) HTN (hypertension) Status: Chronic Qualifiers: Hypertension type: essential hypertension Qualified Code(s): I10 - Essential (primary) hypertension (7) Gout Status: Chronic Qualifiers: Gout site: unspecified site Gout etiology: unspecified cause Chronicity: unspecified Qualified Code(s): M10.9 - Gout, unspecified
[2019-07-31] MEDS ORDERED: VSL#3 PO ONE (10:02)
[2019-07-31] MEDS: LEVAQUIN PREMIX IV 750 MG 750 MG/150 ML BAG IV SCH (10:03)
[2019-07-31] MEDS: LOVENOX INJ 40 MG SYR SC SCH (10:03)
[2019-07-31] MEDS: REMDESIVIR (INVESTIGATIONAL DRUG GS-5734) 100 MG in NS 250 ML IV 250 ML IV SCH (10:04)
[2019-07-31] MEDS: VSL#3 PO SCH (10:04)
[2019-07-31] MEDS: TUSSIONEX PENNKINETIC SUSP PO SCH ×2 (10:04→22:41)
[2019-07-31] MEDS: PULMICORT NEB TX 0.5 MG NEB SCH ×2 (10:52→20:42)
[2019-07-31] MEDS: KLONOPIN TAB 0.5 MG PO PRN (20:48)
[2019-08-01] MEDS: NS 1/2 1000 ML IV 1,000 ML IV SCH ×3 (03:48→04:59)
[2019-08-01] MEDS ORDERED: NS 1/2 1000 ML IV 1,000 ML IV ONE (04:42)
[2019-08-01 05:18] LABS: ABG ALLEN TEST POS; ABG BASE EXCESS 0.5 mmol/L (-2.0-2.0); ABG HCO3 25.4 mmol/L (22-26)
[2019-08-01] MEDS: SOLU-Medrol 40 MG VIAL IVP SCH (05:28)
[2019-08-01] MEDS: TESSALON PERLES PO SCH (05:28)
[2019-08-01] MEDS: DUONEB 0.5 MG/3 MG (3 mL) NEB SCH ×2 (05:42)
[2019-08-01 05:54] LABS: ALANINE AMINOTRANSFERASE 32 Units/L (12-78); ALBUMIN 2.7 g/dL (3.4-5.0); ALKALINE PHOSPHATASE 49 Units/L (46-116); ASPARTATE AMINO TRANSFERASE 25 Units/L (15-37); BLOOD UREA NITROGEN 16 mg/dL (7-18); CALCIUM 8.4 mg/dL (8.5-10.1); CARBON DIOXIDE 29.3 mmol/L (21-32); CHLORIDE 104 mmol/L (98-107); COR CA(FOR HYPOALB) 9.4 mg/dL (8.5-10.1); COR NA(FOR HYPERGLY) 141 mmol/L (136-145); SODIUM 140 mmol/L (136-145); TOTAL PROTEIN 5.9 g/dL (6.4-8.2); eGFR NON BLACK RACES > 60 (>60)
[2019-08-01 06:04] LABS: BASOPHILS % (AUTO) 0 % (0.2-1.0); HEMATOCRIT 38.1 % (42.0-54.0); LYMPHOCYTES # (AUTO) 1.1 X10^3/uL (1.3-2.9); LYMPHOCYTES % (AUTO) 7.1 % (21.0-51.0); MEAN CORPUSCULAR HEMOGLOBIN 29.4 pg (27.0-34.0); MEAN CORPUSCULAR HGB CONC 34.1 g/dL (33.0-35.0); MEAN CORPUSCULAR VOLUME 86.2 fL (80.0-100.0); MEAN PLATELET VOLUME 8.1 fL (7.4-11.0); MONOCYTES # (AUTO) 0.8 x10^3/uL (0.3-0.8); NEUTROPHILS # (AUTO) 13.2 x10^3/uL (2.2-4.8); NEUTROPHILS % (AUTO) 87.9 % (42.0-75.0); PLATELET COUNT 197 X10^3/uL (150.0-450.0); RED BLOOD COUNT 4.43 X10^6/uL (4.7-6.0); RED CELL DISTRIBUTION WIDTH 13.8 % (11.6-16.5)
--- NOTE | 2019-08-01 06:40 | RAD ---
HISTORYSOBSTUDYAP [id number] heart size. There is no significant change in appearance of the bilateral peripheral midlung infiltrates. There is no evidence for associated adenopathy or pleural fluid.IMPRESSIONPersistent bilateral pulmonary infiltrates consistent with multifocal pneumonia. No change.Electronically signed by: CLARICE QUINN (Aug 01, 2019 06:39:35)
[2019-08-01] MEDS: REMDESIVIR (INVESTIGATIONAL DRUG GS-5734) 100 MG in NS 250 ML IV 250 ML IV SCH (08:30)
[2019-08-01] MEDS: PULMICORT NEB TX 0.5 MG NEB SCH (09:40)
[2019-08-01] MEDS: LOVENOX INJ 40 MG SYR SC SCH (09:45)
[2019-08-01] MEDS: LEVAQUIN PREMIX IV 750 MG 750 MG/150 ML BAG IV SCH (09:45)
[2019-08-01] MEDS: VSL#3 PO SCH (09:46)
[2019-08-01] MEDS: TUSSIONEX PENNKINETIC SUSP PO SCH (10:31)
[2019-08-01 12:33] VITALS: BP 131/70
== END 2019-08-01 13:50 | disposition home or self-care (01) | DRG 177 ==
LOC: ER 21:23 → ICU 07-28 01:27
PROVIDERS: ADMIT Obstetrics & Gynecology Obstetrics; ATTEND Internal Medicine
DX: R50.9 Fever, unspecified; M10.9 Gout, unspecified; B96.1 Klebsiella pneumoniae [K. pneumoniae] as the cause of diseases classified elsewhere; J12.89 Other viral pneumonia; N30.00 Acute cystitis without hematuria; I10 Essential (primary) hypertension; U07.1 COVID-19; R06.02 Shortness of breath
CPT/HCPCS: 36415; 36600; 71010; 71045; 80053; 81001; 82728; 82803; 83605; 83735; 85025; 86140; 87040; 87086; 87088; 87186; 87400; 87420; 87651; 87804; 93005; 94640; 94760; 96365; 96367; 96374; 96375; 99284; A4216; A4222; J0131; J0696; J1650; J1956; J2270; J2920; J3262; J3475; J7030; J7050; J7620; J7626